=== PATIENT | male | born 1935 | race Caucasian/White ===

== ENCOUNTER 2017-10-25 14:00 | Inpatient (IN) ==
[2017-10-25 18:27] LABS: Basophils # 0.1 10*3/uL (0.0-0.2); Basophils % 0.6 % (0.0-0.8); Eosinophils # 0.4 10*3/uL (0.0-0.87); Eosinophils % 3.6 % (0.00-10.9); Hematocrit 33.5 VOL% (42.0-52.0); Hemoglobin 10.4 GM/DL (14.0-18.0); Immature Granulocytes % 0.3 %; Immature Granulocytes Absolute 0.03 #; Lymphocytes # 1.5 10*3/uL (1.4-4.0); Lymphocytes % 13.6 % (21.2-54.2); Mean Corpuscular Hemoglobin 32 PG (27-34); Mean Corpuscular Volume 102.1 FL (87-102); Mean Platelet Volume 10.7 FL (9.6-12.0); Monocytes # 1.6 10*3/uL (0.11-0.8); Neutrophils # 7.3 10*3/uL (1.4-7.4); Neutrophils % 66.9 % (38.7-73.9); Platelet Count 168 T/CUMM (130-400); Red Blood Count 3.28 MC/CUMM (3.8-5.5); Red Cell Distribution Width 11.9 % (9.3-17.3); White Blood Count 10.8 T/CUMM (4-12)
[2017-10-25] MEDS ORDERED: IBUPROFEN 600 MG TABLET PO STA (18:32)
[2017-10-25] MEDS ORDERED: IBUPROFEN 600 MG TABLET ONE (18:53)
[2017-10-25 18:55] LABS: Bilirubin,Total 0.7 MG/DL (0.2-1.0); Calcium 9.1 MG/DL (8.5-10.1); Osmolality,Calculated 283.7 MOS/KG (273-304); Potassium 3.5 MMOL/L (3.5-5.1)
[2017-10-25] MEDS ORDERED: AZITHROMYCIN 250 MG TABLET PO STA (19:43)
[2017-10-25] MEDS ORDERED: AZITHROMYCIN 250 MG TABLET ONE (19:50)
[2017-10-25] MEDS ORDERED: ZALEPLON 5 MG CAPSULE PO PRN (20:01)
[2017-10-25] MEDS ORDERED: GLUCAGON 1 MG VIAL IM PRN (20:01)
[2017-10-25] MEDS ORDERED: ONDANSETRON 4 MG/2 ML VIAL IV PRN (20:01)
[2017-10-25] MEDS ORDERED: ACETAMINOPHEN 325 MG TABLET PO PRN (20:01)
[2017-10-25] MEDS ORDERED: MAGNESIUM SULF RIDER 4 GM in PREMIX 1 EACH IV PRN (20:01)
[2017-10-25] MEDS ORDERED: POTASSIUM CHLORIDE 20 MEQ TABLET PO STA (20:10)
[2017-10-25] MEDS ORDERED: guaiFENesin 200 MG/10 ML UDCUP PO PRN (20:59)
[2017-10-25] MEDS: METOPROLOL SUCCINATE XL 25 MG TABLET PO SCH (21:46)
[2017-10-25] MEDS: INSULIN LISPRO 100 UNIT/ML SUBCUT SCH (21:46)
[2017-10-25] MEDS: ENOXAPARIN 40 MG/0.4 ML SYRINGE SUBCUT SCH (22:52)
[2017-10-26] MEDS: SIMVASTATIN 40 MG TABLET PO SCH ×2 (00:26→20:50)
[2017-10-26] MEDS: TAMSULOSIN 0.4 MG CAPSULE PO SCH ×2 (00:27→20:50)
[2017-10-26] MEDS: carBAMazepine CHEW 100 MG TABLET PO SCH ×2 (00:27→20:50)
[2017-10-26 02:04] LABS: Basophils # 0.1 10*3/uL (0.0-0.2); Basophils % 0.7 % (0.0-0.8); Eosinophils # 0.3 10*3/uL (0.0-0.87); Eosinophils % 3.9 % (0.00-10.9); Hematocrit 29.1 VOL% (42.0-52.0); Hemoglobin 9.2 GM/DL (14.0-18.0); Immature Granulocytes % 0.4 %; Immature Granulocytes Absolute 0.03 #; Lymphocytes # 0.7 10*3/uL (1.4-4.0); Lymphocytes % 9.8 % (21.2-54.2); Mean Corpuscular HGB Conc 31.6 GM/DL (32-36); Mean Corpuscular Hemoglobin 32 PG (27-34); Mean Platelet Volume 10.4 FL (9.6-12.0); Monocytes % 13.8 % (1.7-12.7); Neutrophils # 5.3 10*3/uL (1.4-7.4); Neutrophils % 71.4 % (38.7-73.9); Platelet Count 133 T/CUMM (130-400); Red Blood Count 2.88 MC/CUMM (3.8-5.5); Red Cell Distribution Width 11.9 % (9.3-17.3); White Blood Count 7.4 T/CUMM (4-12)
[2017-10-26 02:45] LABS: Calcium 8.1 MG/DL (8.5-10.1); Potassium 3.6 MMOL/L (3.5-5.1); Risk Ratio 2.16; VLDL CHOLESTEROL 13.4 MG/DL
[2017-10-26 03:25] LABS: Apearance,Urine Slightly Hazy (Clear); Bilirubin,Urine Negative (Negative); Blood, Urine Negative (Negative); Glucose,Urine (UA) Negative (Negative); Granular Casts,Urine 2 /LPF (0-1); Hyaline Casts,Urine 18 /LPF (0-3); Ketones,Urine Negative (Negative); Mucus,Urine Occasional /LPF (Occasional); Nitrite,Urine Negative (Negative); Protein,Urine 30 MG/DL; RBC,Urine <1 /HPF (0-4); Squamous Epithelial Cell,Urine Occasional /HPF (0-10); Urine Color Yellow (Yellow); Urine Specific Gravity 1.017 (1.001-1.035); WBC,Urine 5 /HPF (0-6)
[2017-10-26] MEDS ORDERED: ASPIRIN CHEW 81 MG TABLET PO SCH (09:00)
[2017-10-26] MEDS: MULTIVITAMIN (OCUVITE) TABLET PO SCH (10:05)
[2017-10-26] MEDS: METOPROLOL SUCCINATE XL 25 MG TABLET PO SCH (10:05)
[2017-10-26] MEDS: FOLIC ACID 1 MG TABLET PO SCH (10:05)
[2017-10-26] MEDS: FINASTERIDE 5 MG TABLET PO SCH (10:06)
[2017-10-26] MEDS: CLOPIDOGREL 75 MG TABLET PO SCH (10:06)
[2017-10-26] MEDS: PANTOPRAZOLE 40 MG TABLET PO SCH (10:06)
[2017-10-26] MEDS: SPIRONOLACTONE 25 MG TABLET PO SCH (10:06)
[2017-10-26] MEDS: THIAMINE 100 MG TABLET PO SCH (10:06)
[2017-10-26] MEDS: ASPIRIN EC 81 MG TABLET PO SCH (10:07)
[2017-10-26] MEDS: FUROSEMIDE 40 MG/4 ML VIAL IV SCH ×2 (10:07→15:44)
[2017-10-26] MEDS: INSULIN LISPRO 100 UNIT/ML SUBCUT SCH ×4 (10:07→20:50)
[2017-10-26 10:47] LABS: Apearance,Urine CLEAR (Clear); Bilirubin,Urine Negative (Negative); Blood, Urine Negative (Negative); Glucose,Urine (UA) Negative (Negative); Ketones,Urine Negative (Negative); Nitrite,Urine Negative (Negative); Protein,Urine 30 MG/DL; RBC,Urine 1 /HPF (0-4); Squamous Epithelial Cell,Urine Occasional /HPF (0-10); Urine Color Yellow (Yellow); Urine Specific Gravity 1.012 (1.001-1.035); WBC,Urine 5 /HPF (0-6)
[2017-10-26 11:52] LABS: Basophils # 0.1 10*3/uL (0.0-0.2); Basophils % 0.7 % (0.0-0.8); Eosinophils # 0.3 10*3/uL (0.0-0.87); Hematocrit 32.5 VOL% (42.0-52.0); Hemoglobin 10.3 GM/DL (14.0-18.0); Immature Granulocytes % 0.6 %; Immature Granulocytes Absolute 0.04 #; Lymphocytes # 0.8 10*3/uL (1.4-4.0); Lymphocytes % 10.7 % (21.2-54.2); Mean Corpuscular HGB Conc 31.7 GM/DL (32-36); Mean Corpuscular Hemoglobin 32 PG (27-34); Mean Corpuscular Volume 100.9 FL (87-102); Mean Platelet Volume 10.9 FL (9.6-12.0); Monocytes % 13.5 % (1.7-12.7); Neutrophils # 5.1 10*3/uL (1.4-7.4); Neutrophils % 70.5 % (38.7-73.9); Platelet Count 156 T/CUMM (130-400); Red Blood Count 3.22 MC/CUMM (3.8-5.5); Red Cell Distribution Width 11.9 % (9.3-17.3); White Blood Count 7.2 T/CUMM (4-12)
[2017-10-26] MEDS ORDERED: MAGNESIUM SULF RIDER 2 GM in PREMIX 1 EACH IV PRN (12:14)
[2017-10-26] MEDS ORDERED: MAGNESIUM SULF RIDER 4 GM in PREMIX 1 EACH IV PRN (12:14)
[2017-10-26] MEDS: MAGNESIUM OXIDE 400 MG TABLET PO SCH ×2 (12:19→20:50)
[2017-10-26] MEDS: cefTRIAXone 1,000 MG in SYRINGE 1 EACH IV SCH (12:23)
[2017-10-26] MEDS: LEVOFLOXACIN INJ 750 MG in PREMIX 1 EACH IV SCH (12:28)
[2017-10-26 12:36] LABS: Folate > 24.0 NG/ML (5.4-24.0); Vitamin B12 1236 PG/ML (211-911)
[2017-10-26] MEDS: MAGNESIUM SULF RIDER 2 GM in PREMIX 1 EACH IV PRN ×2 (13:55→15:43)
[2017-10-26 14:07] LABS: Sedimentation Rate-Westergren 92 MM/HR (0-20)
[2017-10-26] MEDS ORDERED: MAGNESIUM SULF RIDER 2 GM in PREMIX 1 EACH IV ONE (15:17)
[2017-10-26] MEDS: POTASSIUM CHLORIDE 20 MEQ TABLET PO PRN (15:38)
[2017-10-26] MEDS: OSELTAMIVIR 75 MG CAPSULE PO SCH ×2 (15:38→20:50)
[2017-10-26] MEDS: glipiZIDE 10 MG TABLET PO SCH (15:39)
[2017-10-26] MEDS: ENOXAPARIN 40 MG/0.4 ML SYRINGE SUBCUT SCH ×2 (20:50→21:11)
[2017-10-27 05:54] LABS: Basophils % 0.5 % (0.0-0.8); Eosinophils # 0.3 10*3/uL (0.0-0.87); Eosinophils % 3.7 % (0.00-10.9); Hematocrit 31.8 VOL% (42.0-52.0); Hemoglobin 10.4 GM/DL (14.0-18.0); Immature Granulocytes % 0.6 %; Immature Granulocytes Absolute 0.05 #; Lymphocytes # 1.1 10*3/uL (1.4-4.0); Lymphocytes % 14.1 % (21.2-54.2); Mean Corpuscular HGB Conc 32.7 GM/DL (32-36); Mean Corpuscular Hemoglobin 32 PG (27-34); Mean Platelet Volume 11.1 FL (9.6-12.0); Monocytes # 1.6 10*3/uL (0.11-0.8); Monocytes % 20.4 % (1.7-12.7); Neutrophils # 4.7 10*3/uL (1.4-7.4); Neutrophils % 60.7 % (38.7-73.9); Platelet Count 155 T/CUMM (130-400); Red Blood Count 3.28 MC/CUMM (3.8-5.5); Red Cell Distribution Width 11.8 % (9.3-17.3); White Blood Count 7.8 T/CUMM (4-12)
[2017-10-27 06:27] LABS: Calcium 8.7 MG/DL (8.5-10.1); Magnesium 2.1 MG/DL (1.8-2.4); Osmolality,Calculated 280.5 MOS/KG (273-304); Potassium 3.7 MMOL/L (3.5-5.1)
[2017-10-27 06:36] LABS: Band Neutrophils 1 % (0-10); Eosinophils 3 % (0-10); Hypochromasia 1+; Lymphocytes 10 % (20-55); Segmented Neutrophils 69 % (50-85); Total Cells Counted 100
[2017-10-27 06:37] LABS: Microcytosis 1+
[2017-10-27 06:38] LABS: Platelet Estimate Adequate
[2017-10-27] MEDS: INSULIN LISPRO 100 UNIT/ML SUBCUT SCH ×4 (08:00→20:53)
[2017-10-27] MEDS: FUROSEMIDE 40 MG/4 ML VIAL IV SCH (09:50)
[2017-10-27] MEDS: SPIRONOLACTONE 25 MG TABLET PO SCH (09:50)
[2017-10-27] MEDS: ASPIRIN EC 81 MG TABLET PO SCH (09:51)
[2017-10-27] MEDS: MAGNESIUM OXIDE 400 MG TABLET PO SCH ×2 (09:51→21:08)
[2017-10-27] MEDS: CLOPIDOGREL 75 MG TABLET PO SCH (09:51)
[2017-10-27] MEDS: METOPROLOL SUCCINATE XL 25 MG TABLET PO SCH (09:51)
[2017-10-27] MEDS: FINASTERIDE 5 MG TABLET PO SCH (09:51)
[2017-10-27] MEDS: FOLIC ACID 1 MG TABLET PO SCH (09:51)
[2017-10-27] MEDS: amLODIPine 5 MG TABLET PO SCH (09:52)
[2017-10-27] MEDS: PANTOPRAZOLE 40 MG TABLET PO SCH (09:52)
[2017-10-27] MEDS: OSELTAMIVIR 75 MG CAPSULE PO SCH ×2 (09:52→21:08)
[2017-10-27] MEDS: THIAMINE 100 MG TABLET PO SCH (09:52)
[2017-10-27] MEDS: glipiZIDE 10 MG TABLET PO SCH ×2 (09:52→17:04)
[2017-10-27] MEDS: MULTIVITAMIN (OCUVITE) TABLET PO SCH (09:52)
[2017-10-27] MEDS: cefTRIAXone 1,000 MG in SYRINGE 1 EACH IV SCH (12:54)
[2017-10-27] MEDS: SOTALOL 80 MG TABLET PO SCH ×2 (12:54→21:07)
[2017-10-27] MEDS: APIXABAN 2.5 MG TABLET PO SCH ×2 (12:54→21:08)
[2017-10-27] MEDS: LEVOFLOXACIN INJ 750 MG in PREMIX 1 EACH IV SCH (12:55)
[2017-10-27] MEDS: SIMVASTATIN 40 MG TABLET PO SCH (21:07)
[2017-10-27] MEDS: TAMSULOSIN 0.4 MG CAPSULE PO SCH (21:08)
[2017-10-27] MEDS: carBAMazepine CHEW 100 MG TABLET PO SCH (21:12)
[2017-10-28 04:57] LABS: Calcium 8.7 MG/DL (8.5-10.1); Magnesium 1.9 MG/DL (1.8-2.4); Osmolality,Calculated 285.4 MOS/KG (273-304); Potassium 3.8 MMOL/L (3.5-5.1)
[2017-10-28 05:15] LABS: Basophils # 0.1 10*3/uL (0.0-0.2); Basophils % 0.7 % (0.0-0.8); Eosinophils # 0.3 10*3/uL (0.0-0.87); Eosinophils % 3.6 % (0.00-10.9); Hematocrit 31.9 VOL% (42.0-52.0); Hemoglobin 10.2 GM/DL (14.0-18.0); Immature Granulocytes % 0.6 %; Immature Granulocytes Absolute 0.05 #; Lymphocytes # 1.5 10*3/uL (1.4-4.0); Lymphocytes % 17.6 % (21.2-54.2); Mean Corpuscular Hemoglobin 31 PG (27-34); Mean Corpuscular Volume 98.2 FL (87-102); Monocytes # 1.3 10*3/uL (0.11-0.8); Monocytes % 15.9 % (1.7-12.7); Neutrophils # 5.1 10*3/uL (1.4-7.4); Neutrophils % 61.6 % (38.7-73.9); Platelet Count 170 T/CUMM (130-400); Red Blood Count 3.25 MC/CUMM (3.8-5.5); Red Cell Distribution Width 11.7 % (9.3-17.3); White Blood Count 8.3 T/CUMM (4-12)
[2017-10-28 06:02] LABS: Burr Cells Slight; Eosinophils 3 % (0-10); Lymphocytes 12 % (20-55); Platelet Estimate Normal; Segmented Neutrophils 74 % (50-85); Total Cells Counted 100
[2017-10-28] MEDS: amLODIPine 5 MG TABLET PO SCH (08:50)
[2017-10-28] MEDS: SOTALOL 80 MG TABLET PO SCH ×2 (08:50→21:11)
[2017-10-28] MEDS: PANTOPRAZOLE 40 MG TABLET PO SCH (08:50)
[2017-10-28] MEDS: FOLIC ACID 1 MG TABLET PO SCH (08:50)
[2017-10-28] MEDS: METOPROLOL SUCCINATE XL 25 MG TABLET PO SCH (08:51)
[2017-10-28] MEDS: SPIRONOLACTONE 25 MG TABLET PO SCH (08:51)
[2017-10-28] MEDS: glipiZIDE 10 MG TABLET PO SCH ×2 (08:51→16:37)
[2017-10-28] MEDS: MAGNESIUM OXIDE 400 MG TABLET PO SCH ×2 (08:52→21:11)
[2017-10-28] MEDS: FINASTERIDE 5 MG TABLET PO SCH (08:52)
[2017-10-28] MEDS: MULTIVITAMIN (OCUVITE) TABLET PO SCH (08:52)
[2017-10-28] MEDS: INSULIN LISPRO 100 UNIT/ML SUBCUT SCH ×4 (08:52→21:13)
[2017-10-28] MEDS: FUROSEMIDE 40 MG TABLET PO SCH (08:52)
[2017-10-28] MEDS: APIXABAN 2.5 MG TABLET PO SCH ×2 (08:52→21:11)
[2017-10-28] MEDS: ASPIRIN EC 81 MG TABLET PO SCH (08:52)
[2017-10-28] MEDS: OSELTAMIVIR 75 MG CAPSULE PO SCH ×2 (08:52→21:11)
[2017-10-28] MEDS: THIAMINE 100 MG TABLET PO SCH (08:57)
[2017-10-28] MEDS: POTASSIUM CHLORIDE 20 MEQ TABLET PO PRN (08:57)
[2017-10-28] MEDS: LEVOFLOXACIN INJ 750 MG in PREMIX 1 EACH IV SCH (13:10)
[2017-10-28] MEDS: cefTRIAXone 1,000 MG in SYRINGE 1 EACH IV SCH (13:10)
[2017-10-28] MEDS ORDERED: SODIUM CHLORIDE 0.9% 1,000 ML IV SCH (14:30)
[2017-10-28] MEDS: SIMVASTATIN 40 MG TABLET PO SCH (21:11)
[2017-10-28] MEDS: TAMSULOSIN 0.4 MG CAPSULE PO SCH (21:12)
[2017-10-28] MEDS: carBAMazepine CHEW 100 MG TABLET PO SCH (21:20)
[2017-10-29 06:01] LABS: Basophils # 0.1 10*3/uL (0.0-0.2); Eosinophils # 0.4 10*3/uL (0.0-0.87); Eosinophils % 4.1 % (0.00-10.9); Hematocrit 35.3 VOL% (42.0-52.0); Hemoglobin 11.4 GM/DL (14.0-18.0); Immature Granulocytes % 1.1 %; Immature Granulocytes Absolute 0.11 #; Lymphocytes # 2.1 10*3/uL (1.4-4.0); Lymphocytes % 22.1 % (21.2-54.2); Mean Corpuscular HGB Conc 32.3 GM/DL (32-36); Mean Corpuscular Hemoglobin 32 PG (27-34); Mean Corpuscular Volume 98.6 FL (87-102); Mean Platelet Volume 10.7 FL (9.6-12.0); Monocytes # 1.1 10*3/uL (0.11-0.8); Monocytes % 10.9 % (1.7-12.7); Neutrophils # 5.8 10*3/uL (1.4-7.4); Neutrophils % 60.8 % (38.7-73.9); Platelet Count 194 T/CUMM (130-400); Red Blood Count 3.58 MC/CUMM (3.8-5.5); Red Cell Distribution Width 11.8 % (9.3-17.3); White Blood Count 9.6 T/CUMM (4-12)
[2017-10-29 06:23] LABS: Giant Platelets Few; Hypochromasia 1+; Microcytosis Slight; Ovalocytes Slight; Platelet Estimate Adequate
[2017-10-29 06:35] LABS: Magnesium 2.1 MG/DL (1.8-2.4); Osmolality,Calculated 288.3 MOS/KG (273-304); Potassium 4.6 MMOL/L (3.5-5.1)
[2017-10-29] MEDS: INSULIN LISPRO 100 UNIT/ML SUBCUT SCH ×4 (08:37→21:45)
[2017-10-29] MEDS: glipiZIDE 10 MG TABLET PO SCH ×2 (08:37→15:51)
[2017-10-29] MEDS ORDERED: MIDAZOLAM 10 MG/2 ML VIAL ONE (08:55)
[2017-10-29] MEDS ORDERED: NALOXONE 0.4 MG/ML VIAL ONE (08:55)
[2017-10-29] MEDS ORDERED: FLUMAZENIL 0.5 MG/5 ML VIAL IV ONE (08:56)
[2017-10-29] MEDS ORDERED: MEPERIDINE 50 MG/1 ML VIAL ONE (08:56)
[2017-10-29] MEDS: SOTALOL 80 MG TABLET PO SCH (11:23)
[2017-10-29] MEDS: METOPROLOL SUCCINATE XL 25 MG TABLET PO SCH (12:34)
[2017-10-29] MEDS: FINASTERIDE 5 MG TABLET PO SCH (12:46)
[2017-10-29] MEDS: PANTOPRAZOLE 40 MG TABLET PO SCH (12:46)
[2017-10-29] MEDS: amLODIPine 5 MG TABLET PO SCH (12:46)
[2017-10-29] MEDS: SPIRONOLACTONE 25 MG TABLET PO SCH (12:47)
[2017-10-29] MEDS: THIAMINE 100 MG TABLET PO SCH (12:47)
[2017-10-29] MEDS: FUROSEMIDE 40 MG TABLET PO SCH (12:47)
[2017-10-29] MEDS: MAGNESIUM OXIDE 400 MG TABLET PO SCH ×2 (12:47→21:46)
[2017-10-29] MEDS: OSELTAMIVIR 75 MG CAPSULE PO SCH ×2 (12:47→21:46)
[2017-10-29] MEDS: FOLIC ACID 1 MG TABLET PO SCH (12:47)
[2017-10-29] MEDS: ASPIRIN EC 81 MG TABLET PO SCH (12:48)
[2017-10-29] MEDS: APIXABAN 2.5 MG TABLET PO SCH ×2 (12:48→21:45)
[2017-10-29] MEDS: MULTIVITAMIN (OCUVITE) TABLET PO SCH (12:48)
[2017-10-29] MEDS: LEVOFLOXACIN INJ 750 MG in PREMIX 1 EACH IV SCH (13:11)
[2017-10-29] MEDS: cefTRIAXone 1,000 MG in SYRINGE 1 EACH IV SCH (13:13)
[2017-10-29] MEDS: FUROSEMIDE 40 MG/4 ML VIAL IV SCH (15:50)
[2017-10-29] MEDS: TAMSULOSIN 0.4 MG CAPSULE PO SCH (21:45)
[2017-10-29] MEDS: SIMVASTATIN 40 MG TABLET PO SCH (21:46)
[2017-10-29] MEDS: carBAMazepine CHEW 100 MG TABLET PO SCH (21:55)
[2017-10-30 03:05] LABS: Basophils # 0.1 10*3/uL (0.0-0.2); Basophils % 1.2 % (0.0-0.8); Eosinophils # 0.4 10*3/uL (0.0-0.87); Eosinophils % 4.6 % (0.00-10.9); Hematocrit 30.4 VOL% (42.0-52.0); Hemoglobin 9.8 GM/DL (14.0-18.0); Immature Granulocytes % 0.7 %; Immature Granulocytes Absolute 0.06 #; Lymphocytes % 24.2 % (21.2-54.2); Mean Corpuscular HGB Conc 32.2 GM/DL (32-36); Mean Corpuscular Hemoglobin 31 PG (27-34); Mean Corpuscular Volume 97.4 FL (87-102); Mean Platelet Volume 10.9 FL (9.6-12.0); Monocytes % 12.2 % (1.7-12.7); Neutrophils # 4.7 10*3/uL (1.4-7.4); Neutrophils % 57.1 % (38.7-73.9); Platelet Count 196 T/CUMM (130-400); Red Blood Count 3.12 MC/CUMM (3.8-5.5); Red Cell Distribution Width 11.9 % (9.3-17.3); White Blood Count 8.3 T/CUMM (4-12)
[2017-10-30 03:30] LABS: Calcium 8.6 MG/DL (8.5-10.1); Magnesium 2.3 MG/DL (1.8-2.4); Osmolality,Calculated 293.3 MOS/KG (273-304); Potassium 4.3 MMOL/L (3.5-5.1)
[2017-10-30 03:48] LABS: Anisocytosis 1+; Ovalocytes Few; Platelet Estimate Normal
[2017-10-30] MEDS: INSULIN LISPRO 100 UNIT/ML SUBCUT SCH ×4 (09:18→21:09)
[2017-10-30] MEDS: SPIRONOLACTONE 25 MG TABLET PO SCH (09:26)
[2017-10-30] MEDS: MAGNESIUM OXIDE 400 MG TABLET PO SCH ×2 (09:27→21:09)
[2017-10-30] MEDS: FOLIC ACID 1 MG TABLET PO SCH (09:27)
[2017-10-30] MEDS: FINASTERIDE 5 MG TABLET PO SCH (09:27)
[2017-10-30] MEDS: OSELTAMIVIR 75 MG CAPSULE PO SCH ×2 (09:27→21:10)
[2017-10-30] MEDS: amLODIPine 5 MG TABLET PO SCH (09:27)
[2017-10-30] MEDS: PANTOPRAZOLE 40 MG TABLET PO SCH (09:27)
[2017-10-30] MEDS: ASPIRIN EC 81 MG TABLET PO SCH (09:27)
[2017-10-30] MEDS: APIXABAN 2.5 MG TABLET PO SCH ×2 (09:27→21:09)
[2017-10-30] MEDS: MULTIVITAMIN (OCUVITE) TABLET PO SCH (09:27)
[2017-10-30] MEDS: THIAMINE 100 MG TABLET PO SCH (09:27)
[2017-10-30] MEDS: FUROSEMIDE 40 MG/4 ML VIAL IV SCH (09:28)
[2017-10-30] MEDS: glipiZIDE 10 MG TABLET PO SCH ×2 (09:28→17:03)
[2017-10-30] MEDS: METOPROLOL SUCCINATE XL 25 MG TABLET PO SCH (09:40)
[2017-10-30] MEDS: cefTRIAXone 1,000 MG in SYRINGE 1 EACH IV SCH (12:45)
[2017-10-30] MEDS: LEVOFLOXACIN INJ 750 MG in PREMIX 1 EACH IV SCH (12:45)
[2017-10-30] MEDS: TAMSULOSIN 0.4 MG CAPSULE PO SCH (21:09)
[2017-10-30] MEDS: SIMVASTATIN 40 MG TABLET PO SCH (21:10)
[2017-10-30] MEDS: carBAMazepine CHEW 100 MG TABLET PO SCH (21:10)
[2017-10-30] MEDS ORDERED: ATROPINE 1 MG/10 ML SYRINGE IV PRN (22:35)
[2017-10-31 05:54] LABS: Basophils # 0.1 10*3/uL (0.0-0.2); Basophils % 0.9 % (0.0-0.8); Eosinophils # 0.6 10*3/uL (0.0-0.87); Eosinophils % 5.5 % (0.00-10.9); Hematocrit 30.9 VOL% (42.0-52.0); Hemoglobin 9.9 GM/DL (14.0-18.0); Immature Granulocytes % 0.6 %; Immature Granulocytes Absolute 0.06 #; Lymphocytes # 1.8 10*3/uL (1.4-4.0); Lymphocytes % 17.7 % (21.2-54.2); Mean Corpuscular Hemoglobin 32 PG (27-34); Mean Corpuscular Volume 99.4 FL (87-102); Mean Platelet Volume 10.6 FL (9.6-12.0); Monocytes % 9.4 % (1.7-12.7); Neutrophils # 6.7 10*3/uL (1.4-7.4); Neutrophils % 65.9 % (38.7-73.9); Platelet Count 202 T/CUMM (130-400); Red Blood Count 3.11 MC/CUMM (3.8-5.5); Red Cell Distribution Width 11.9 % (9.3-17.3); White Blood Count 10.2 T/CUMM (4-12)
[2017-10-31 06:17] LABS: Calcium 8.9 MG/DL (8.5-10.1); Magnesium 2.2 MG/DL (1.8-2.4); Osmolality,Calculated 296.1 MOS/KG (273-304); Osmolality,Calculated 298.1 MOS/KG (273-304); Potassium 4.1 MMOL/L (3.5-5.1); Potassium 4.5 MMOL/L (3.5-5.1)
[2017-10-31] MEDS: MULTIVITAMIN (OCUVITE) TABLET PO SCH (08:45)
[2017-10-31] MEDS: glipiZIDE 10 MG TABLET PO SCH ×2 (08:45→16:10)
[2017-10-31] MEDS: FOLIC ACID 1 MG TABLET PO SCH (08:45)
[2017-10-31] MEDS: THIAMINE 100 MG TABLET PO SCH (08:46)
[2017-10-31] MEDS: MAGNESIUM OXIDE 400 MG TABLET PO SCH ×2 (08:46→21:14)
[2017-10-31] MEDS: ASPIRIN EC 81 MG TABLET PO SCH (08:46)
[2017-10-31] MEDS: PANTOPRAZOLE 40 MG TABLET PO SCH (08:46)
[2017-10-31] MEDS: amLODIPine 5 MG TABLET PO SCH (08:46)
[2017-10-31] MEDS: APIXABAN 2.5 MG TABLET PO SCH (08:46)
[2017-10-31] MEDS: FINASTERIDE 5 MG TABLET PO SCH (08:47)
[2017-10-31] MEDS: OSELTAMIVIR 75 MG CAPSULE PO SCH ×2 (08:47→21:14)
[2017-10-31] MEDS: SPIRONOLACTONE 25 MG TABLET PO SCH (08:47)
[2017-10-31] MEDS: FUROSEMIDE 40 MG/4 ML VIAL IV SCH (08:47)
[2017-10-31] MEDS: INSULIN LISPRO 100 UNIT/ML SUBCUT SCH ×4 (08:52→21:15)
[2017-10-31] MEDS: METOPROLOL SUCCINATE XL 25 MG TABLET PO SCH (08:57)
[2017-10-31] MEDS ORDERED: HEPARIN DRIP 25,000 UNITS/500 ML PREMIX IV ONE (12:36)
[2017-10-31] MEDS: LEVOFLOXACIN INJ 750 MG in PREMIX 1 EACH IV SCH (15:45)
[2017-10-31] MEDS: cefTRIAXone 1,000 MG in SYRINGE 1 EACH IV SCH (15:46)
[2017-10-31 17:02] LABS: Partial Thromboplastin Time 27.2 SECS (0-40)
[2017-10-31] MEDS: HEPARIN DRIP 25,000 UNITS/500 ML PREMIX IV SCH (17:30)
[2017-10-31] MEDS: TAMSULOSIN 0.4 MG CAPSULE PO SCH (21:14)
[2017-10-31] MEDS: carBAMazepine CHEW 100 MG TABLET PO SCH (21:14)
[2017-10-31] MEDS: SIMVASTATIN 40 MG TABLET PO SCH (21:14)
[2017-11-01 01:02] LABS: INR 1.1; PT Patient Result 11.4 SECS; Partial Thromboplastin Time 34.5 SECS (0-40)
[2017-11-01] MEDS: HEPARIN 5,000 UNIT/1 ML VIAL IV PRN (01:40)
[2017-11-01 05:19] LABS: Basophils # 0.1 10*3/uL (0.0-0.2); Eosinophils # 0.9 10*3/uL (0.0-0.87); Eosinophils % 7.3 % (0.00-10.9); Hematocrit 32.2 VOL% (42.0-52.0); Hemoglobin 10.3 GM/DL (14.0-18.0); Immature Granulocytes % 0.7 %; Immature Granulocytes Absolute 0.08 #; Lymphocytes # 1.7 10*3/uL (1.4-4.0); Lymphocytes % 14.8 % (21.2-54.2); Mean Corpuscular Hemoglobin 32 PG (27-34); Mean Corpuscular Volume 98.8 FL (87-102); Mean Platelet Volume 11.1 FL (9.6-12.0); Monocytes # 1.2 10*3/uL (0.11-0.8); Neutrophils # 7.8 10*3/uL (1.4-7.4); Neutrophils % 66.2 % (38.7-73.9); Platelet Count 213 T/CUMM (130-400); Red Blood Count 3.26 MC/CUMM (3.8-5.5); Red Cell Distribution Width 11.8 % (9.3-17.3); White Blood Count 11.7 T/CUMM (4-12)
[2017-11-01 05:23] LABS: INR 1.1; PT Patient Result 11.6 SECS
[2017-11-01 07:10] LABS: Magnesium 2.3 MG/DL (1.8-2.4); Potassium 3.9 MMOL/L (3.5-5.1)
[2017-11-01] MEDS: glipiZIDE 10 MG TABLET PO SCH ×2 (07:56→16:12)
[2017-11-01] MEDS: INSULIN LISPRO 100 UNIT/ML SUBCUT SCH ×4 (07:56→20:42)
[2017-11-01] MEDS: FOLIC ACID 1 MG TABLET PO SCH (08:48)
[2017-11-01] MEDS: ASPIRIN EC 81 MG TABLET PO SCH (08:48)
[2017-11-01] MEDS: SPIRONOLACTONE 25 MG TABLET PO SCH (08:48)
[2017-11-01] MEDS: MULTIVITAMIN (OCUVITE) TABLET PO SCH (08:49)
[2017-11-01] MEDS: MAGNESIUM OXIDE 400 MG TABLET PO SCH ×2 (08:49→20:39)
[2017-11-01] MEDS: amLODIPine 5 MG TABLET PO SCH (08:49)
[2017-11-01] MEDS: FINASTERIDE 5 MG TABLET PO SCH (08:49)
[2017-11-01] MEDS: PANTOPRAZOLE 40 MG TABLET PO SCH (08:49)
[2017-11-01] MEDS: OSELTAMIVIR 75 MG CAPSULE PO SCH ×2 (08:49→20:39)
[2017-11-01] MEDS: THIAMINE 100 MG TABLET PO SCH (08:49)
[2017-11-01] MEDS: HEPARIN DRIP 25,000 UNITS/500 ML PREMIX IV SCH ×2 (09:56→16:28)
[2017-11-01] MEDS: FUROSEMIDE 40 MG/4 ML VIAL IV SCH (09:59)
[2017-11-01] MEDS: LEVOFLOXACIN INJ 750 MG in PREMIX 1 EACH IV SCH (12:06)
[2017-11-01] MEDS: cefTRIAXone 1,000 MG in SYRINGE 1 EACH IV SCH (13:52)
[2017-11-01] MEDS: SIMVASTATIN 40 MG TABLET PO SCH (20:39)
[2017-11-01] MEDS: TAMSULOSIN 0.4 MG CAPSULE PO SCH (20:39)
[2017-11-01] MEDS: carBAMazepine CHEW 100 MG TABLET PO SCH (20:39)
[2017-11-02] MEDS: HEPARIN DRIP 25,000 UNITS/500 ML PREMIX IV SCH ×2 (04:24→17:06)
[2017-11-02 06:01] LABS: Basophils # 0.1 10*3/uL (0.0-0.2); Basophils % 0.7 % (0.0-0.8); Eosinophils # 0.5 10*3/uL (0.0-0.87); Eosinophils % 3.3 % (0.00-10.9); Hemoglobin 11.1 GM/DL (14.0-18.0); Immature Granulocytes % 0.7 %; Immature Granulocytes Absolute 0.09 #; Lymphocytes # 1.3 10*3/uL (1.4-4.0); Lymphocytes % 9.2 % (21.2-54.2); Mean Corpuscular HGB Conc 32.6 GM/DL (32-36); Mean Corpuscular Hemoglobin 32 PG (27-34); Mean Corpuscular Volume 96.6 FL (87-102); Monocytes # 1.5 10*3/uL (0.11-0.8); Monocytes % 10.6 % (1.7-12.7); Neutrophils # 10.5 10*3/uL (1.4-7.4); Neutrophils % 75.5 % (38.7-73.9); Platelet Count 232 T/CUMM (130-400); Red Blood Count 3.52 MC/CUMM (3.8-5.5); Red Cell Distribution Width 11.8 % (9.3-17.3); White Blood Count 13.8 T/CUMM (4-12)
[2017-11-02 06:29] LABS: Calcium 9.5 MG/DL (8.5-10.1); Magnesium 2.3 MG/DL (1.8-2.4); Osmolality,Calculated 282.5 MOS/KG (273-304); Potassium 3.8 MMOL/L (3.5-5.1)
[2017-11-02] MEDS: glipiZIDE 10 MG TABLET PO SCH ×2 (08:43→17:24)
[2017-11-02] MEDS: INSULIN LISPRO 100 UNIT/ML SUBCUT SCH ×4 (08:44→21:56)
[2017-11-02] MEDS: LEVOFLOXACIN INJ 750 MG in PREMIX 1 EACH IV SCH (11:39)
[2017-11-02 11:59] LABS: Amorphous Crystals,Urine Occasional /HPF (Few); Apearance,Urine Slightly Hazy (Clear); Bacteria,Urine Occasional /HPF (Few); Bilirubin,Urine Negative (Negative); Blood, Urine Negative (Negative); Glucose,Urine (UA) Negative (Negative); Ketones,Urine 5 mg/dL (Negative); Mucus,Urine Occasional /LPF (Occasional); Nitrite,Urine Negative (Negative); Protein,Urine Negative; RBC,Urine 1 /HPF (0-4); Squamous Epithelial Cell,Urine Occasional /HPF (0-10); Urine Color Yellow (Yellow); Urine Specific Gravity 1.017 (1.001-1.035); Urine Urobilinogen < 2.0 EU/DL (0.2-1.0); WBC,Urine 1 /HPF (0-6)
[2017-11-02] MEDS: FINASTERIDE 5 MG TABLET PO SCH (12:00)
[2017-11-02] MEDS: amLODIPine 5 MG TABLET PO SCH (12:00)
[2017-11-02] MEDS: FOLIC ACID 1 MG TABLET PO SCH (12:00)
[2017-11-02] MEDS: THIAMINE 100 MG TABLET PO SCH (12:00)
[2017-11-02] MEDS: MULTIVITAMIN (OCUVITE) TABLET PO SCH (12:01)
[2017-11-02] MEDS: ASPIRIN EC 81 MG TABLET PO SCH (12:01)
[2017-11-02] MEDS: FUROSEMIDE 40 MG/4 ML VIAL IV SCH (12:01)
[2017-11-02] MEDS: MAGNESIUM OXIDE 400 MG TABLET PO SCH ×2 (12:01→21:56)
[2017-11-02] MEDS: OSELTAMIVIR 75 MG CAPSULE PO SCH ×2 (12:01→21:56)
[2017-11-02] MEDS: PANTOPRAZOLE 40 MG TABLET PO SCH (12:01)
[2017-11-02] MEDS: SPIRONOLACTONE 25 MG TABLET PO SCH (12:01)
[2017-11-02] MEDS: cefTRIAXone 1,000 MG in SYRINGE 1 EACH IV SCH (13:53)
[2017-11-02] MEDS ORDERED: ZINC OXIDE PASTE 113 GM TUBE TOP PRN (15:21)
[2017-11-02] MEDS: TAMSULOSIN 0.4 MG CAPSULE PO SCH (21:56)
[2017-11-02] MEDS: SIMVASTATIN 40 MG TABLET PO SCH (21:56)
[2017-11-02] MEDS: carBAMazepine CHEW 100 MG TABLET PO SCH (21:56)
[2017-11-03] MEDS: HEPARIN DRIP 25,000 UNITS/500 ML PREMIX IV SCH (00:40)
[2017-11-03 02:17] LABS: Basophils # 0.1 10*3/uL (0.0-0.2); Basophils % 0.6 % (0.0-0.8); Eosinophils # 0.3 10*3/uL (0.0-0.87); Hematocrit 33.6 VOL% (42.0-52.0); Hemoglobin 10.8 GM/DL (14.0-18.0); Immature Granulocytes Absolute 0.13 #; Lymphocytes # 1.7 10*3/uL (1.4-4.0); Lymphocytes % 13.1 % (21.2-54.2); Mean Corpuscular HGB Conc 32.1 GM/DL (32-36); Mean Corpuscular Hemoglobin 31 PG (27-34); Mean Corpuscular Volume 96.8 FL (87-102); Mean Platelet Volume 10.6 FL (9.6-12.0); Monocytes # 1.6 10*3/uL (0.11-0.8); Monocytes % 12.3 % (1.7-12.7); Neutrophils # 8.9 10*3/uL (1.4-7.4); Platelet Count 204 T/CUMM (130-400); Red Blood Count 3.47 MC/CUMM (3.8-5.5); White Blood Count 12.6 T/CUMM (4-12)
[2017-11-03] MEDS: HEPARIN 5,000 UNIT/1 ML VIAL IV PRN (02:46)
[2017-11-03 02:53] LABS: Magnesium 2.3 MG/DL (1.8-2.4); Osmolality,Calculated 276.8 MOS/KG (273-304)
[2017-11-03] MEDS: DEXTROSE 50% 25 GM/50 ML VIAL IV PRN ×2 (03:34→06:42)
[2017-11-03] MEDS ORDERED: ceFAZolin 1,000 MG in SYRINGE 1 EACH IV ONE (07:34)
[2017-11-03] MEDS: glipiZIDE 10 MG TABLET PO SCH ×2 (08:12→16:24)
[2017-11-03] MEDS: FUROSEMIDE 40 MG/4 ML VIAL IV SCH (08:12)
[2017-11-03] MEDS: INSULIN LISPRO 100 UNIT/ML SUBCUT SCH ×4 (08:13→23:00)
[2017-11-03] MEDS: amLODIPine 5 MG TABLET PO SCH (09:21)
[2017-11-03] MEDS: THIAMINE 100 MG TABLET PO SCH (09:21)
[2017-11-03] MEDS: MAGNESIUM OXIDE 400 MG TABLET PO SCH ×2 (09:22→20:48)
[2017-11-03] MEDS: FINASTERIDE 5 MG TABLET PO SCH (09:22)
[2017-11-03] MEDS: SPIRONOLACTONE 25 MG TABLET PO SCH (09:22)
[2017-11-03] MEDS: PANTOPRAZOLE 40 MG TABLET PO SCH (09:22)
[2017-11-03] MEDS: ASPIRIN EC 81 MG TABLET PO SCH (09:22)
[2017-11-03] MEDS: MULTIVITAMIN (OCUVITE) TABLET PO SCH (09:22)
[2017-11-03] MEDS: OSELTAMIVIR 75 MG CAPSULE PO SCH ×2 (09:23→20:48)
[2017-11-03] MEDS: FOLIC ACID 1 MG TABLET PO SCH (09:31)
[2017-11-03] MEDS ORDERED: MIDAZOLAM 2 MG/2 ML VIAL ONE ×2 (09:58→13:25)
[2017-11-03] MEDS ORDERED: TISSUE ADHESIVE 1 EACH APPLICATOR TOP ONE ×2 (09:58→13:26)
[2017-11-03] MEDS ORDERED: fentaNYL 100 MCG/2 ML VIAL ONE ×2 (09:58→13:25)
[2017-11-03] MEDS ORDERED: LIDOCAINE 1% 20 ML VIAL ONE ×3 (09:58→13:57)
[2017-11-03] MEDS ORDERED: HEPARIN/NACL 0.9% 2 UNITS/ML 0 ML IV ONE (09:58)
[2017-11-03] MEDS ORDERED: VANCOMYCIN 500 MG VIAL ONE ×2 (10:11→13:26)
[2017-11-03] MEDS ORDERED: HEPARIN/NACL 0.9% 2 UNITS/ML 1,000 ML IV ONE (13:25)
[2017-11-03] MEDS: LEVOFLOXACIN INJ 750 MG in PREMIX 1 EACH IV SCH (14:56)
[2017-11-03] MEDS: cefTRIAXone 1,000 MG in SYRINGE 1 EACH IV SCH (14:58)
[2017-11-03] MEDS: SIMVASTATIN 40 MG TABLET PO SCH (20:47)
[2017-11-03] MEDS: carBAMazepine CHEW 100 MG TABLET PO SCH (20:48)
[2017-11-03] MEDS: TAMSULOSIN 0.4 MG CAPSULE PO SCH (20:48)
[2017-11-04 05:17] LABS: Basophils # 0.1 10*3/uL (0.0-0.2); Basophils % 0.8 % (0.0-0.8); Eosinophils # 0.3 10*3/uL (0.0-0.87); Eosinophils % 3.2 % (0.00-10.9); Hematocrit 34.4 VOL% (42.0-52.0); Hemoglobin 11.3 GM/DL (14.0-18.0); Immature Granulocytes % 1.2 %; Immature Granulocytes Absolute 0.12 #; Lymphocytes # 1.3 10*3/uL (1.4-4.0); Lymphocytes % 12.5 % (21.2-54.2); Mean Corpuscular HGB Conc 32.8 GM/DL (32-36); Mean Corpuscular Hemoglobin 32 PG (27-34); Mean Corpuscular Volume 96.6 FL (87-102); Mean Platelet Volume 10.9 FL (9.6-12.0); Monocytes # 1.5 10*3/uL (0.11-0.8); Monocytes % 14.1 % (1.7-12.7); Neutrophils # 7.1 10*3/uL (1.4-7.4); Neutrophils % 68.2 % (38.7-73.9); Platelet Count 195 T/CUMM (130-400); Red Blood Count 3.56 MC/CUMM (3.8-5.5); White Blood Count 10.4 T/CUMM (4-12)
[2017-11-04 05:35] LABS: Calcium 8.6 MG/DL (8.5-10.1); Magnesium 2.5 MG/DL (1.8-2.4); Osmolality,Calculated 289.4 MOS/KG (273-304); Potassium 4.1 MMOL/L (3.5-5.1)
[2017-11-04] MEDS: INSULIN LISPRO 100 UNIT/ML SUBCUT SCH ×4 (08:45→20:23)
[2017-11-04] MEDS: glipiZIDE 10 MG TABLET PO SCH ×2 (08:50→16:02)
[2017-11-04] MEDS: PANTOPRAZOLE 40 MG TABLET PO SCH (08:51)
[2017-11-04] MEDS: THIAMINE 100 MG TABLET PO SCH (08:51)
[2017-11-04] MEDS: FINASTERIDE 5 MG TABLET PO SCH (08:51)
[2017-11-04] MEDS: ASPIRIN EC 81 MG TABLET PO SCH (08:51)
[2017-11-04] MEDS: FOLIC ACID 1 MG TABLET PO SCH (08:51)
[2017-11-04] MEDS: amLODIPine 5 MG TABLET PO SCH (08:51)
[2017-11-04] MEDS: MULTIVITAMIN (OCUVITE) TABLET PO SCH (08:51)
[2017-11-04] MEDS: FUROSEMIDE 40 MG/4 ML VIAL IV SCH (08:52)
[2017-11-04] MEDS: SPIRONOLACTONE 25 MG TABLET PO SCH (08:52)
[2017-11-04] MEDS: MAGNESIUM OXIDE 400 MG TABLET PO SCH ×2 (09:01→20:26)
[2017-11-04] MEDS: METOPROLOL TARTRATE 25 MG TABLET PO SCH ×2 (10:56→20:21)
[2017-11-04] MEDS: cefTRIAXone 1,000 MG in SYRINGE 1 EACH IV SCH (12:43)
[2017-11-04] MEDS: LEVOFLOXACIN INJ 750 MG in PREMIX 1 EACH IV SCH (12:44)
[2017-11-04] MEDS: HEPARIN DRIP 25,000 UNITS/500 ML PREMIX IV SCH (13:45)
[2017-11-04] MEDS ORDERED: LEVOFLOXACIN 500 MG TABLET PO SCH (14:00)
[2017-11-04] MEDS: carBAMazepine CHEW 100 MG TABLET PO SCH (20:21)
[2017-11-04] MEDS: TAMSULOSIN 0.4 MG CAPSULE PO SCH (20:21)
[2017-11-04] MEDS: SIMVASTATIN 40 MG TABLET PO SCH (20:22)
[2017-11-04] MEDS ORDERED: HEPARIN 5,000 UNIT/1 ML VIAL IV ONE (21:53)
[2017-11-05 04:53] LABS: Basophils # 0.1 10*3/uL (0.0-0.2); Basophils % 0.9 % (0.0-0.8); Eosinophils # 0.6 10*3/uL (0.0-0.87); Eosinophils % 4.5 % (0.00-10.9); Hematocrit 34.6 VOL% (42.0-52.0); Hemoglobin 10.9 GM/DL (14.0-18.0); Immature Granulocytes % 0.9 %; Immature Granulocytes Absolute 0.11 #; Lymphocytes # 2.3 10*3/uL (1.4-4.0); Lymphocytes % 17.6 % (21.2-54.2); Mean Corpuscular HGB Conc 31.5 GM/DL (32-36); Mean Corpuscular Hemoglobin 31 PG (27-34); Mean Corpuscular Volume 98.6 FL (87-102); Monocytes # 1.5 10*3/uL (0.11-0.8); Monocytes % 11.9 % (1.7-12.7); Neutrophils # 8.2 10*3/uL (1.4-7.4); Neutrophils % 64.2 % (38.7-73.9); Platelet Count 199 T/CUMM (130-400); Red Blood Count 3.51 MC/CUMM (3.8-5.5); Red Cell Distribution Width 12.1 % (9.3-17.3); White Blood Count 12.8 T/CUMM (4-12)
[2017-11-05 05:25] LABS: Magnesium 2.4 MG/DL (1.8-2.4); Osmolality,Calculated 284.4 MOS/KG (273-304); Potassium 3.9 MMOL/L (3.5-5.1)
[2017-11-05] MEDS: glipiZIDE 10 MG TABLET PO SCH (09:37)
[2017-11-05] MEDS: MULTIVITAMIN (OCUVITE) TABLET PO SCH (09:37)
[2017-11-05] MEDS: FUROSEMIDE 40 MG/4 ML VIAL IV SCH (09:37)
[2017-11-05] MEDS: THIAMINE 100 MG TABLET PO SCH (09:38)
[2017-11-05] MEDS: FOLIC ACID 1 MG TABLET PO SCH (09:38)
[2017-11-05] MEDS: METOPROLOL TARTRATE 25 MG TABLET PO SCH (09:38)
[2017-11-05] MEDS: MAGNESIUM OXIDE 400 MG TABLET PO SCH (09:38)
[2017-11-05] MEDS: SPIRONOLACTONE 25 MG TABLET PO SCH (09:38)
[2017-11-05] MEDS: amLODIPine 5 MG TABLET PO SCH (09:38)
[2017-11-05] MEDS: FINASTERIDE 5 MG TABLET PO SCH (09:38)
[2017-11-05] MEDS: PANTOPRAZOLE 40 MG TABLET PO SCH (09:38)
[2017-11-05] MEDS: ASPIRIN EC 81 MG TABLET PO SCH (09:38)
[2017-11-05] MEDS: INSULIN LISPRO 100 UNIT/ML SUBCUT SCH ×2 (09:39→12:44)
[2017-11-05] MEDS: HEPARIN DRIP 25,000 UNITS/500 ML PREMIX IV SCH ×2 (10:06→12:43)
[2017-11-05 12:32] VITALS: BP 118/59
[2017-11-06] MEDS ORDERED: FUROSEMIDE 40 MG TABLET PO SCH (09:00)
[2017-11-06] MEDS ORDERED: MAGNESIUM OXIDE 400 MG TABLET PO SCH (09:00)
== END 2017-11-05 12:45 | DRG 242 ==
LOC: N.ED 14:00 → N.EDINP 20:01 → SUATTDRO 20:02 → N.TELES 21:15
PROVIDERS: ADMIT Internal Medicine; ATTEND Internal Medicine Cardiovascular Disease

== ENCOUNTER 2018-03-09 15:50 | Inpatient (IN) ==
[2018-03-09] MEDS ORDERED: SODIUM CHLORIDE 0.9% 500 ML IV STA (16:21)
[2018-03-09] MEDS ORDERED: CLINDAMYCIN INJ 600 MG in PREMIX 1 EACH IV STA (16:21)
[2018-03-09 16:34] LABS: Basophils # 0.1 10*3/uL (0.0-0.2); Basophils % 0.7 % (0.0-0.8); Eosinophils # 0.2 10*3/uL (0.0-0.87); Eosinophils % 1.3 % (0.00-10.9); Hematocrit 34.5 VOL% (42.0-52.0); Hemoglobin 11.3 GM/DL (14.0-18.0); Immature Granulocytes % 0.5 %; Immature Granulocytes Absolute 0.07 #; Lymphocytes # 1.5 10*3/uL (1.4-4.0); Lymphocytes % 11.3 % (21.2-54.2); Mean Corpuscular HGB Conc 32.8 GM/DL (32-36); Mean Corpuscular Hemoglobin 32 PG (27-34); Mean Corpuscular Volume 97.2 FL (87-102); Mean Platelet Volume 10.9 FL (9.6-12.0); Monocytes # 1.4 10*3/uL (0.11-0.8); Monocytes % 10.3 % (1.7-12.7); Neutrophils # 10.1 10*3/uL (1.4-7.4); Neutrophils % 75.9 % (38.7-73.9); Platelet Count 182 T/CUMM (130-400); Red Blood Count 3.55 MC/CUMM (3.8-5.5); Red Cell Distribution Width 12.1 % (9.3-17.3); White Blood Count 13.3 T/CUMM (4-12)
[2018-03-09 16:58] LABS: INR 3.4
[2018-03-09 17:02] LABS: Calcium 8.3 MG/DL (8.5-10.1)
[2018-03-09 17:07] LABS: PT Patient Result 34.4 SECS; Partial Thromboplastin Time 52.8 SECS (0-40)
[2018-03-09] MEDS ORDERED: GLUCAGON 1 MG VIAL IM PRN (17:16)
[2018-03-09] MEDS ORDERED: DEXTROSE 50% 25 GM/50 ML VIAL IV PRN (17:16)
[2018-03-09] MEDS ORDERED: ACETAMINOPHEN 325 MG TABLET PO PRN ×2 (17:16→20:15)
[2018-03-09 18:17] LABS: Risk Ratio 2.67; VLDL CHOLESTEROL 25.6 MG/DL
[2018-03-09] MEDS: SODIUM CHLORIDE 0.9% 1,000 ML IV SCH (19:38)
[2018-03-09] MEDS: VANCOMYCIN INJ 1,500 MG in SODIUM CHLORIDE 0.9% 500 ML IV SCH (20:15)
[2018-03-09] MEDS ORDERED: ZINC OXIDE PASTE 113 GM TUBE TOP PRN (20:15)
[2018-03-09] MEDS ORDERED: INSULIN GLARGINE 100 UNIT/ML SUBCUT SCH (21:00)
[2018-03-09] MEDS: SIMVASTATIN 20 MG TABLET PO SCH (21:30)
[2018-03-09] MEDS: TAMSULOSIN 0.4 MG CAPSULE PO SCH (21:30)
[2018-03-09] MEDS: INSULIN REGULAR 100 UNIT/ML SUBCUT SCH (21:31)
[2018-03-10 06:55] LABS: Basophils # 0.1 10*3/uL (0.0-0.2); Basophils % 0.7 % (0.0-0.8); Eosinophils # 0.2 10*3/uL (0.0-0.87); Eosinophils % 1.7 % (0.00-10.9); Hematocrit 31.3 VOL% (42.0-52.0); Hemoglobin 10.2 GM/DL (14.0-18.0); Immature Granulocytes % 0.7 %; Immature Granulocytes Absolute 0.08 #; Lymphocytes # 1.5 10*3/uL (1.4-4.0); Lymphocytes % 12.8 % (21.2-54.2); Mean Corpuscular HGB Conc 32.6 GM/DL (32-36); Mean Corpuscular Hemoglobin 32 PG (27-34); Mean Corpuscular Volume 96.9 FL (87-102); Mean Platelet Volume 11.5 FL (9.6-12.0); Monocytes # 1.4 10*3/uL (0.11-0.8); Neutrophils # 8.4 10*3/uL (1.4-7.4); Neutrophils % 72.1 % (38.7-73.9); Platelet Count 177 T/CUMM (130-400); Red Blood Count 3.23 MC/CUMM (3.8-5.5); Red Cell Distribution Width 12.1 % (9.3-17.3); White Blood Count 11.7 T/CUMM (4-12)
[2018-03-10 07:11] LABS: INR 2.9
[2018-03-10 07:15] LABS: PT Patient Result 29.4 SECS
[2018-03-10 07:29] LABS: Albumin 2.7 G/DL (3.4-5.0); Bilirubin,Total 1.3 MG/DL (0.2-1.0); Calcium 8.5 MG/DL (8.5-10.1); Osmolality,Calculated 280.4 MOS/KG (273-304); Potassium 3.8 MMOL/L (3.5-5.1); Total Protein 5.8 G/DL (6.4-8.3)
[2018-03-10] MEDS: SODIUM CHLORIDE 0.9% 1,000 ML IV SCH ×2 (08:06→18:06)
[2018-03-10] MEDS ORDERED: amLODIPine 5 MG TABLET PO SCH (09:00)
[2018-03-10] MEDS: glipiZIDE 10 MG TABLET PO SCH ×2 (09:17→16:41)
[2018-03-10] MEDS: INSULIN REGULAR 100 UNIT/ML SUBCUT SCH ×4 (09:17→21:08)
[2018-03-10] MEDS: SPIRONOLACTONE 25 MG TABLET PO SCH (09:18)
[2018-03-10] MEDS: METOPROLOL TARTRATE 25 MG TABLET PO SCH ×2 (09:18→16:35)
[2018-03-10] MEDS: carBAMazepine CHEW 100 MG TABLET PO SCH (09:18)
[2018-03-10] MEDS: FUROSEMIDE 20 MG TABLET PO SCH (09:18)
[2018-03-10] MEDS: FINASTERIDE 5 MG TABLET PO SCH (09:19)
[2018-03-10] MEDS: FERROUS SULFATE 325 MG TABLET PO SCH (09:19)
[2018-03-10] MEDS: PANTOPRAZOLE 40 MG TABLET PO SCH (09:19)
[2018-03-10] MEDS ORDERED: amLODIPine 5 MG TABLET PO ONE (11:00)
[2018-03-10] MEDS ORDERED: ASPIRIN CHEW 81 MG TABLET PO ONE (14:12)
[2018-03-10] MEDS: ASPIRIN EC 81 MG TABLET PO SCH (14:14)
[2018-03-10] MEDS: VANCOMYCIN INJ 1,500 MG in SODIUM CHLORIDE 0.9% 500 ML IV SCH (18:24)
[2018-03-10] MEDS: SIMVASTATIN 20 MG TABLET PO SCH (20:34)
[2018-03-10] MEDS: TAMSULOSIN 0.4 MG CAPSULE PO SCH (20:34)
[2018-03-10] MEDS: INSULIN GLARGINE 100 UNIT/ML SUBCUT SCH (20:39)
[2018-03-11] MEDS: SODIUM CHLORIDE 0.9% 1,000 ML IV SCH ×3 (04:00→20:00)
[2018-03-11 04:31] LABS: Basophils # 0.1 10*3/uL (0.0-0.2); Eosinophils # 0.3 10*3/uL (0.0-0.87); Eosinophils % 4.2 % (0.00-10.9); Hematocrit 32.1 VOL% (42.0-52.0); Hemoglobin 10.5 GM/DL (14.0-18.0); Immature Granulocytes % 0.5 %; Immature Granulocytes Absolute 0.04 #; Lymphocytes # 1.4 10*3/uL (1.4-4.0); Lymphocytes % 16.6 % (21.2-54.2); Mean Corpuscular HGB Conc 32.7 GM/DL (32-36); Mean Corpuscular Hemoglobin 32 PG (27-34); Mean Corpuscular Volume 96.7 FL (87-102); Mean Platelet Volume 11.6 FL (9.6-12.0); Monocytes % 12.6 % (1.7-12.7); Neutrophils # 5.3 10*3/uL (1.4-7.4); Neutrophils % 65.1 % (38.7-73.9); Platelet Count 194 T/CUMM (130-400); Red Blood Count 3.32 MC/CUMM (3.8-5.5); Red Cell Distribution Width 11.9 % (9.3-17.3); White Blood Count 8.2 T/CUMM (4-12)
[2018-03-11 04:40] LABS: INR 2.1
[2018-03-11 04:47] LABS: PT Patient Result 21.3 SECS
[2018-03-11 04:52] LABS: Calcium 8.6 MG/DL (8.5-10.1); Osmolality,Calculated 282.4 MOS/KG (273-304); Potassium 3.7 MMOL/L (3.5-5.1)
[2018-03-11] MEDS ORDERED: MUPIROCIN 2% OINT 22 GM TUBE TOP ONE (06:24)
[2018-03-11] MEDS ORDERED: LIDOCAINE 1%/EPI INJ 20 ML VIAL ONE (06:24)
[2018-03-11] MEDS ORDERED: OXYMETAZOLINE 0.05% NASAL SPRAY 15 ML BOTTLE ONE (06:24)
[2018-03-11] MEDS: INSULIN REGULAR 100 UNIT/ML SUBCUT SCH ×4 (08:40→22:30)
[2018-03-11] MEDS: amLODIPine 10 MG TABLET PO SCH (08:46)
[2018-03-11] MEDS: FUROSEMIDE 20 MG TABLET PO SCH (08:46)
[2018-03-11] MEDS: METOPROLOL TARTRATE 25 MG TABLET PO SCH ×2 (08:49→16:21)
[2018-03-11] MEDS ORDERED: PROPOFOL 200 MG/20 ML VIAL IV ONE (11:37)
[2018-03-11] MEDS ORDERED: KETAMINE 500 MG/10 ML VIAL ONE (11:38)
[2018-03-11] MEDS ORDERED: SODIUM CHLORIDE 0.9% 250 ML IV ONE (11:38)
[2018-03-11] MEDS: FINASTERIDE 5 MG TABLET PO SCH (12:08)
[2018-03-11] MEDS: glipiZIDE 10 MG TABLET PO SCH ×2 (12:08→16:21)
[2018-03-11] MEDS: PANTOPRAZOLE 40 MG TABLET PO SCH (12:08)
[2018-03-11] MEDS: FERROUS SULFATE 325 MG TABLET PO SCH (12:08)
[2018-03-11] MEDS: SPIRONOLACTONE 25 MG TABLET PO SCH (12:12)
[2018-03-11] MEDS: carBAMazepine CHEW 100 MG TABLET PO SCH (12:12)
[2018-03-11] MEDS: RIFAMPIN 300 MG CAPSULE PO SCH (16:21)
[2018-03-11] MEDS: VANCOMYCIN INJ 1,500 MG in SODIUM CHLORIDE 0.9% 500 ML IV SCH (18:15)
[2018-03-11] MEDS: SIMVASTATIN 20 MG TABLET PO SCH (22:22)
[2018-03-11] MEDS: TAMSULOSIN 0.4 MG CAPSULE PO SCH (22:22)
[2018-03-11] MEDS: INSULIN GLARGINE 100 UNIT/ML SUBCUT SCH (22:31)
[2018-03-12] MEDS: SODIUM CHLORIDE 0.9% 1,000 ML IV SCH (04:00)
[2018-03-12] MEDS: INSULIN REGULAR 100 UNIT/ML SUBCUT SCH ×4 (07:55→22:36)
[2018-03-12] MEDS: amLODIPine 10 MG TABLET PO SCH (08:34)
[2018-03-12] MEDS: ASPIRIN EC 81 MG TABLET PO SCH (08:34)
[2018-03-12] MEDS: PANTOPRAZOLE 40 MG TABLET PO SCH (08:34)
[2018-03-12] MEDS: RIFAMPIN 300 MG CAPSULE PO SCH (08:34)
[2018-03-12] MEDS: glipiZIDE 10 MG TABLET PO SCH ×2 (08:34→16:35)
[2018-03-12] MEDS: FINASTERIDE 5 MG TABLET PO SCH (08:34)
[2018-03-12] MEDS: FERROUS SULFATE 325 MG TABLET PO SCH (08:34)
[2018-03-12] MEDS: SPIRONOLACTONE 25 MG TABLET PO SCH (08:35)
[2018-03-12] MEDS: carBAMazepine CHEW 100 MG TABLET PO SCH (08:35)
[2018-03-12] MEDS: METOPROLOL TARTRATE 25 MG TABLET PO SCH ×2 (08:35→16:35)
[2018-03-12] MEDS: FUROSEMIDE 20 MG TABLET PO SCH (08:35)
[2018-03-12] MEDS: WARFARIN 3 MG TABLET PO SCH (18:05)
[2018-03-12] MEDS: WARFARIN 10 MG TABLET PO SCH (18:06)
[2018-03-12] MEDS: VANCOMYCIN INJ 1,500 MG in SODIUM CHLORIDE 0.9% 500 ML IV SCH (18:08)
[2018-03-12] MEDS: TAMSULOSIN 0.4 MG CAPSULE PO SCH (22:16)
[2018-03-12] MEDS: SIMVASTATIN 20 MG TABLET PO SCH (22:17)
[2018-03-12] MEDS: INSULIN GLARGINE 100 UNIT/ML SUBCUT SCH (22:38)
[2018-03-13 05:12] LABS: Basophils # 0.1 10*3/uL (0.0-0.2); Basophils % 1.3 % (0.0-0.8); Eosinophils # 0.4 10*3/uL (0.0-0.87); Eosinophils % 5.4 % (0.00-10.9); Hemoglobin 11.3 GM/DL (14.0-18.0); Immature Granulocytes % 0.7 %; Immature Granulocytes Absolute 0.05 #; Lymphocytes # 1.7 10*3/uL (1.4-4.0); Lymphocytes % 23.4 % (21.2-54.2); Mean Corpuscular HGB Conc 34.2 GM/DL (32-36); Mean Corpuscular Hemoglobin 32 PG (27-34); Mean Corpuscular Volume 93.5 FL (87-102); Mean Platelet Volume 11.2 FL (9.6-12.0); Monocytes # 1.1 10*3/uL (0.11-0.8); Monocytes % 15.1 % (1.7-12.7); Neutrophils # 3.8 10*3/uL (1.4-7.4); Neutrophils % 54.1 % (38.7-73.9); Platelet Count 237 T/CUMM (130-400); Red Blood Count 3.53 MC/CUMM (3.8-5.5)
[2018-03-13 05:33] LABS: Calcium 8.7 MG/DL (8.5-10.1); Potassium 3.5 MMOL/L (3.5-5.1)
[2018-03-13 05:37] LABS: INR 1.3; PT Patient Result 13.4 SECS
[2018-03-13] MEDS: INSULIN REGULAR 100 UNIT/ML SUBCUT SCH ×4 (07:54→21:27)
[2018-03-13] MEDS: SODIUM CHLORIDE 0.9% 1,000 ML IV SCH ×2 (07:54→16:38)
[2018-03-13] MEDS: FINASTERIDE 5 MG TABLET PO SCH (08:33)
[2018-03-13] MEDS: FERROUS SULFATE 325 MG TABLET PO SCH (08:33)
[2018-03-13] MEDS: PANTOPRAZOLE 40 MG TABLET PO SCH (08:33)
[2018-03-13] MEDS: glipiZIDE 10 MG TABLET PO SCH ×2 (08:34→16:22)
[2018-03-13] MEDS: BISACODYL 5 MG TABLET PO PRN (08:34)
[2018-03-13] MEDS: RIFAMPIN 300 MG CAPSULE PO SCH (08:34)
[2018-03-13] MEDS: METOPROLOL TARTRATE 25 MG TABLET PO SCH ×2 (08:34→16:22)
[2018-03-13] MEDS: FUROSEMIDE 20 MG TABLET PO SCH (08:34)
[2018-03-13] MEDS: SPIRONOLACTONE 25 MG TABLET PO SCH (08:34)
[2018-03-13] MEDS: amLODIPine 10 MG TABLET PO SCH (08:34)
[2018-03-13] MEDS: ASPIRIN EC 81 MG TABLET PO SCH (08:34)
[2018-03-13] MEDS: carBAMazepine CHEW 100 MG TABLET PO SCH (08:34)
[2018-03-13] MEDS: WARFARIN 10 MG TABLET PO SCH (18:23)
[2018-03-13] MEDS: WARFARIN 3 MG TABLET PO SCH (18:23)
[2018-03-13] MEDS: VANCOMYCIN INJ 1,500 MG in SODIUM CHLORIDE 0.9% 500 ML IV SCH (18:23)
[2018-03-13] MEDS: TAMSULOSIN 0.4 MG CAPSULE PO SCH (21:26)
[2018-03-13] MEDS: SIMVASTATIN 20 MG TABLET PO SCH (21:27)
[2018-03-13] MEDS: INSULIN GLARGINE 100 UNIT/ML SUBCUT SCH (21:27)
[2018-03-14 08:17] LABS: Basophils # 0.1 10*3/uL (0.0-0.2); Basophils % 1.2 % (0.0-0.8); Eosinophils # 0.2 10*3/uL (0.0-0.87); Eosinophils % 2.5 % (0.00-10.9); Hematocrit 36.2 VOL% (42.0-52.0); Hemoglobin 12.3 GM/DL (14.0-18.0); Immature Granulocytes % 0.6 %; Immature Granulocytes Absolute 0.06 #; Lymphocytes # 1.9 10*3/uL (1.4-4.0); Lymphocytes % 19.8 % (21.2-54.2); Mean Corpuscular Hemoglobin 32 PG (27-34); Mean Platelet Volume 11.9 FL (9.6-12.0); Monocytes % 10.3 % (1.7-12.7); Neutrophils # 6.2 10*3/uL (1.4-7.4); Neutrophils % 65.6 % (38.7-73.9); Platelet Count 235 T/CUMM (130-400); Red Blood Count 3.85 MC/CUMM (3.8-5.5); Red Cell Distribution Width 12.1 % (9.3-17.3); White Blood Count 9.4 T/CUMM (4-12)
[2018-03-14] MEDS: INSULIN REGULAR 100 UNIT/ML SUBCUT SCH ×4 (08:23→21:17)
[2018-03-14 08:24] LABS: INR 1.5; PT Patient Result 15.7 SECS
[2018-03-14 08:49] LABS: Calcium 9.2 MG/DL (8.5-10.1); Osmolality,Calculated 280.3 MOS/KG (273-304); Potassium 3.6 MMOL/L (3.5-5.1)
[2018-03-14] MEDS: RIFAMPIN 300 MG CAPSULE PO SCH (09:21)
[2018-03-14] MEDS: FERROUS SULFATE 325 MG TABLET PO SCH (09:22)
[2018-03-14] MEDS: amLODIPine 10 MG TABLET PO SCH (09:22)
[2018-03-14] MEDS: FINASTERIDE 5 MG TABLET PO SCH (09:22)
[2018-03-14] MEDS: glipiZIDE 10 MG TABLET PO SCH ×2 (09:23→15:59)
[2018-03-14] MEDS: METOPROLOL TARTRATE 25 MG TABLET PO SCH ×2 (09:24→15:59)
[2018-03-14] MEDS: ASPIRIN EC 81 MG TABLET PO SCH (09:24)
[2018-03-14] MEDS: FUROSEMIDE 20 MG TABLET PO SCH (09:24)
[2018-03-14] MEDS: SPIRONOLACTONE 25 MG TABLET PO SCH (09:24)
[2018-03-14] MEDS: PANTOPRAZOLE 40 MG TABLET PO SCH (09:24)
[2018-03-14] MEDS: carBAMazepine CHEW 100 MG TABLET PO SCH (09:24)
[2018-03-14] MEDS: SODIUM CHLORIDE 0.9% 1,000 ML IV SCH ×3 (10:09→18:40)
[2018-03-14] MEDS: WARFARIN 3 MG TABLET PO SCH (18:03)
[2018-03-14] MEDS: WARFARIN 10 MG TABLET PO SCH (18:03)
[2018-03-14] MEDS: VANCOMYCIN INJ 1,500 MG in SODIUM CHLORIDE 0.9% 500 ML IV SCH (18:30)
[2018-03-14] MEDS: TAMSULOSIN 0.4 MG CAPSULE PO SCH (21:16)
[2018-03-14] MEDS: SIMVASTATIN 20 MG TABLET PO SCH (21:16)
[2018-03-14] MEDS: INSULIN GLARGINE 100 UNIT/ML SUBCUT SCH (21:17)
[2018-03-15] MEDS: INSULIN REGULAR 100 UNIT/ML SUBCUT SCH ×4 (09:25→21:14)
[2018-03-15] MEDS: glipiZIDE 10 MG TABLET PO SCH ×2 (09:26→17:28)
[2018-03-15] MEDS: SPIRONOLACTONE 25 MG TABLET PO SCH (09:29)
[2018-03-15] MEDS: METOPROLOL TARTRATE 25 MG TABLET PO SCH ×2 (09:29→17:28)
[2018-03-15] MEDS: amLODIPine 10 MG TABLET PO SCH (09:32)
[2018-03-15] MEDS: FINASTERIDE 5 MG TABLET PO SCH (09:32)
[2018-03-15] MEDS: FUROSEMIDE 20 MG TABLET PO SCH (09:32)
[2018-03-15] MEDS: ASPIRIN EC 81 MG TABLET PO SCH (09:32)
[2018-03-15] MEDS: PANTOPRAZOLE 40 MG TABLET PO SCH (09:32)
[2018-03-15] MEDS: carBAMazepine CHEW 100 MG TABLET PO SCH (09:32)
[2018-03-15] MEDS: FERROUS SULFATE 325 MG TABLET PO SCH (09:32)
[2018-03-15] MEDS: RIFAMPIN 300 MG CAPSULE PO SCH (09:32)
[2018-03-15] MEDS: SODIUM CHLORIDE 0.9% 1,000 ML IV SCH ×2 (13:13→22:01)
[2018-03-15] MEDS: VANCOMYCIN INJ 1,500 MG in SODIUM CHLORIDE 0.9% 500 ML IV SCH (17:27)
[2018-03-15] MEDS: WARFARIN 3 MG TABLET PO SCH (17:29)
[2018-03-15] MEDS: WARFARIN 10 MG TABLET PO SCH (17:29)
[2018-03-15] MEDS: SIMVASTATIN 20 MG TABLET PO SCH (21:13)
[2018-03-15] MEDS: TAMSULOSIN 0.4 MG CAPSULE PO SCH (21:13)
[2018-03-15] MEDS: INSULIN GLARGINE 100 UNIT/ML SUBCUT SCH (21:14)
[2018-03-15] MEDS: CLINDAMYCIN 300 MG CAPSULE PO SCH (21:58)
[2018-03-16] MEDS: SODIUM CHLORIDE 0.9% 1,000 ML IV SCH (02:31)
[2018-03-16] MEDS: CLINDAMYCIN 300 MG CAPSULE PO SCH (05:09)
[2018-03-16 08:01] VITALS: BP 147/71
[2018-03-16] MEDS: amLODIPine 10 MG TABLET PO SCH (08:37)
[2018-03-16] MEDS: PANTOPRAZOLE 40 MG TABLET PO SCH (08:37)
[2018-03-16] MEDS: FERROUS SULFATE 325 MG TABLET PO SCH (08:37)
[2018-03-16] MEDS: glipiZIDE 10 MG TABLET PO SCH (08:37)
[2018-03-16] MEDS: FINASTERIDE 5 MG TABLET PO SCH (08:37)
[2018-03-16] MEDS: SPIRONOLACTONE 25 MG TABLET PO SCH (08:38)
[2018-03-16] MEDS: METOPROLOL TARTRATE 25 MG TABLET PO SCH (08:38)
[2018-03-16] MEDS: FUROSEMIDE 20 MG TABLET PO SCH (08:39)
[2018-03-16] MEDS: RIFAMPIN 300 MG CAPSULE PO SCH (08:39)
[2018-03-16] MEDS: ASPIRIN EC 81 MG TABLET PO SCH (08:39)
[2018-03-16] MEDS: BISACODYL 5 MG TABLET PO PRN (08:39)
[2018-03-16] MEDS: carBAMazepine CHEW 100 MG TABLET PO SCH (08:41)
[2018-03-16] MEDS: INSULIN REGULAR 100 UNIT/ML SUBCUT SCH (08:44)
[2018-03-27] MEDS ORDERED: CYANOCOBALAMIN 1000 MCG/1 ML VIAL IM SCH (09:00)
== END 2018-03-16 11:03 | DRG 571 ==
LOC: EDUNIT# → EDBD → N.ED 15:50 → N.EDINP 16:42 → SUATTDRO 16:42 → N.2E 19:18
PROVIDERS: ADMIT Internal Medicine; ATTEND Internal Medicine Infectious Disease

== ENCOUNTER 2021-03-21 22:00 | Inpatient (IN) ==
[2021-03-21 22:30] LABS: Basophils # 0.1 10*3/uL (0.0-0.2); Basophils % 0.4 % (0.0-0.8); Eosinophils % 0.2 % (0.00-10.9); Hematocrit 35.5 VOL% (42.0-52.0); Hemoglobin 11.5 GM/DL (14.0-18.0); Immature Granulocytes Absolute 0.16 #; Lymphocytes # 1.2 10*3/uL (1.4-4.0); Lymphocytes % 7.6 % (21.2-54.2); Mean Corpuscular HGB Conc 32.4 GM/DL (32-36); Mean Corpuscular Volume 99.4 FL (87-102); Mean Platelet Volume 11.2 FL (9.6-12.0); Monocytes % 11.4 % (1.7-12.7); Neutrophils % 79.4 % (38.7-73.9); Platelet Count 153 T/CUMM (130-400); Red Blood Count 3.57 MC/CUMM (3.8-5.5); Red Cell Distribution Width 12.3 % (9.3-17.3); White Blood Count 16.3 T/CUMM (4-12)
[2021-03-21 22:42] LABS: Albumin 3.2 G/DL (3.4-5.0); Calcium 8.6 MG/DL (8.5-10.1); Potassium 3.6 MMOL/L (3.5-5.1); Total Protein 6.6 G/DL (6.4-8.2)
[2021-03-21 23:00] LABS: INR 1.2; PT Patient Result 12.7 SECS (10.5-12.0); Partial Thromboplastin Time 29.5 SECS (23.9-33.8)
[2021-03-21] MEDS ORDERED: LEVOFLOXACIN INJ 500 MG/100 ML PREMIX IV STA (23:10)
[2021-03-22] MEDS ORDERED: SODIUM CHLORIDE 0.9% 1,000 ML IV STA (01:14)
[2021-03-22] MEDS ORDERED: GLUCAGON 1 MG VIAL IM PRN ×2 (02:12→12:38)
[2021-03-22] MEDS ORDERED: DEXTROSE 50% 25 GM/50 ML VIAL IV PRN ×3 (02:12→12:38)
[2021-03-22] MEDS ORDERED: ACETAMINOPHEN 325 MG TABLET PO PRN (02:12)
[2021-03-22] MEDS ORDERED: diphenhydrAMINE CAP 25 MG CAPSULE PO PRN (02:12)
[2021-03-22] MEDS ORDERED: NICOTINE 21 MG/24 HR PATCH TRANSDERM PRN (02:12)
[2021-03-22] MEDS ORDERED: ONDANSETRON 4 MG/2 ML VIAL IV PRN (02:12)
[2021-03-22] MEDS ORDERED: hydrALAZINE 20 MG/1 ML VIAL IV PRN (02:12)
[2021-03-22 02:52] LABS: Bacteria,Urine Occasional /HPF (Few); Bilirubin,Urine Negative (Negative); Blood, Urine Negative (Negative); Glucose,Urine (UA) Negative (Negative); Hyaline Casts,Urine 1 /LPF (0-3); Ketones,Urine Negative (Negative); Mucus,Urine Occasional /LPF (Occasional); Nitrite,Urine Negative (Negative); Protein,Urine 30 MG/DL; RBC,Urine 1 /HPF (0-4); Squamous Epithelial Cell,Urine Occasional /HPF (0-10); Urine Appearance Slightly Hazy (Clear); Urine Color Amber (Yellow); Urine Specific Gravity 1.014 (1.001-1.035); Urine Urobilinogen < 2.0 EU/DL (0.2-1.0)
[2021-03-22 05:07] LABS: Albumin 2.7 G/DL (3.4-5.0); Bilirubin,Direct 0.42 MG/DL (0.0-0.20); Bilirubin,Indirect 1.1 MG/DL (0.0-1.0); Bilirubin,Total 1.5 MG/DL (0.2-1.0); Total Protein 6.4 G/DL (6.4-8.2)
[2021-03-22] MEDS: CLINDAMYCIN INJ 300 MG/50 ML PREMIX IV SCH ×2 (06:32→16:21)
[2021-03-22] MEDS: SODIUM CHLORIDE 0.9% 1,000 ML IV SCH (06:32)
[2021-03-22] MEDS ORDERED: APIXABAN 5 MG TABLET PO SCH (13:00)
[2021-03-22] MEDS ORDERED: cefTRIAXone 1,000 MG in SODIUM CHLORIDE 0.9% 100 ML IV SCH (13:00)
[2021-03-22] MEDS: FERROUS SULFATE 325 MG TABLET PO SCH (14:24)
[2021-03-22] MEDS: DOCUSATE SODIUM 100 MG CAPSULE PO SCH ×2 (14:24→21:58)
[2021-03-22] MEDS: MEMANTINE 5 MG TABLET PO SCH (14:24)
[2021-03-22] MEDS: PANTOPRAZOLE 40 MG TABLET PO SCH (16:22)
[2021-03-22] MEDS: INSULIN LISPRO 100 UNIT/ML SUBCUT SCH (16:22)
[2021-03-22] MEDS: HEPARIN DRIP 25,000 UNITS/500 ML PREMIX IV SCH (17:27)
[2021-03-22] MEDS ORDERED: WARFARIN 10 MG TABLET PO SCH (18:00)
[2021-03-22] MEDS: SOTALOL 80 MG TABLET PO SCH (21:58)
[2021-03-22] MEDS: TAMSULOSIN 0.4 MG CAPSULE PO SCH (21:58)
[2021-03-22] MEDS: carBAMazepine 200 MG TABLET PO SCH (21:58)
[2021-03-22] MEDS: metroNIDAZOLE INJ 500 MG/100 ML PREMIX IV SCH (21:59)
[2021-03-23 00:45] LABS: Basophils % 0.3 % (0.0-0.8); Eosinophils # 0.1 10*3/uL (0.0-0.87); Eosinophils % 0.5 % (0.00-10.9); Hematocrit 32.5 VOL% (42.0-52.0); Hemoglobin 10.6 GM/DL (14.0-18.0); Immature Granulocytes % 0.7 %; Immature Granulocytes Absolute 0.08 #; Lymphocytes % 8.7 % (21.2-54.2); Mean Corpuscular HGB Conc 32.6 GM/DL (32-36); Mean Corpuscular Volume 101.2 FL (87-102); Monocytes % 12.1 % (1.7-12.7); Neutrophils % 77.7 % (38.7-73.9); Platelet Count 142 T/CUMM (130-400); Red Blood Count 3.21 MC/CUMM (3.8-5.5); Red Cell Distribution Width 12.3 % (9.3-17.3); White Blood Count 10.9 T/CUMM (4-12)
[2021-03-23 00:58] LABS: Albumin 2.4 G/DL (3.4-5.0); Bilirubin,Total 0.6 MG/DL (0.2-1.0); Calcium 8.5 MG/DL (8.5-10.1); Osmolality,Calculated 288.4 MOS/KG (273-304); Potassium 3.6 MMOL/L (3.5-5.1); Total Protein 6.3 G/DL (6.4-8.2)
[2021-03-23 02:39] LABS: Hypochromasia 1+; Platelet Estimate Normal
[2021-03-23] MEDS: INSULIN LISPRO 100 UNIT/ML SUBCUT SCH ×5 (04:30→21:00)
[2021-03-23] MEDS: metroNIDAZOLE INJ 500 MG/100 ML PREMIX IV SCH ×3 (05:11→21:01)
[2021-03-23] MEDS: cefTRIAXone 1,000 MG in SODIUM CHLORIDE 0.9% 100 ML IV SCH (08:12)
[2021-03-23] MEDS: SODIUM CHLORIDE 0.9% 1,000 ML IV SCH ×2 (08:14→21:02)
[2021-03-23] MEDS: MEMANTINE 5 MG TABLET PO SCH (08:16)
[2021-03-23] MEDS: FINASTERIDE 5 MG TABLET PO SCH (08:16)
[2021-03-23] MEDS: ASPIRIN EC 81 MG TABLET PO SCH (08:16)
[2021-03-23] MEDS: DOCUSATE SODIUM 100 MG CAPSULE PO SCH ×2 (08:16→20:59)
[2021-03-23] MEDS: SOTALOL 80 MG TABLET PO SCH (08:16)
[2021-03-23] MEDS: FERROUS SULFATE 325 MG TABLET PO SCH (08:16)
[2021-03-23] MEDS: PANTOPRAZOLE 40 MG TABLET PO SCH ×3 (08:18→15:54)
[2021-03-23 10:23] LABS: Amorphous Crystals,Urine Few /HPF (Few); Bacteria,Urine Occasional /HPF (Few); Bilirubin,Urine Negative (Negative); Blood, Urine Negative (Negative); Glucose,Urine (UA) Negative (Negative); Ketones,Urine Negative (Negative); Mucus,Urine Occasional /LPF (Occasional); Nitrite,Urine Negative (Negative); Protein,Urine 30 MG/DL; RBC,Urine 1 /HPF (0-4); Squamous Epithelial Cell,Urine Occasional /HPF (0-10); Urine Appearance CLOUDY (Clear); Urine Color Amber (Yellow); Urine Specific Gravity 1.017 (1.001-1.035); Urine Urobilinogen < 2.0 EU/DL (0.2-1.0)
[2021-03-23] MEDS: HEPARIN DRIP 25,000 UNITS/500 ML PREMIX IV SCH (12:27)
[2021-03-23] MEDS: TAMSULOSIN 0.4 MG CAPSULE PO SCH (20:59)
[2021-03-23] MEDS: carBAMazepine 200 MG TABLET PO SCH (20:59)
[2021-03-23] MEDS ORDERED: LEVOFLOXACIN INJ 500 MG/100 ML PREMIX IV SCH (21:00)
[2021-03-24] MEDS: metroNIDAZOLE INJ 500 MG/100 ML PREMIX IV SCH ×3 (05:39→20:19)
[2021-03-24 06:01] LABS: Basophils % 0.5 % (0.0-0.8); Eosinophils # 0.1 10*3/uL (0.0-0.87); Eosinophils % 1.7 % (0.00-10.9); Hematocrit 31.6 VOL% (42.0-52.0); Hemoglobin 10.2 GM/DL (14.0-18.0); Immature Granulocytes % 0.6 %; Immature Granulocytes Absolute 0.05 #; Lymphocytes # 0.9 10*3/uL (1.4-4.0); Mean Corpuscular HGB Conc 32.3 GM/DL (32-36); Mean Platelet Volume 11.3 FL (9.6-12.0); Monocytes % 13.4 % (1.7-12.7); Neutrophils % 72.8 % (38.7-73.9); Platelet Count 140 T/CUMM (130-400); Red Blood Count 3.16 MC/CUMM (3.8-5.5); Red Cell Distribution Width 12.1 % (9.3-17.3); White Blood Count 8.1 T/CUMM (4-12)
[2021-03-24 06:21] LABS: Albumin 2.3 G/DL (3.4-5.0); Bilirubin,Total 1.2 MG/DL (0.2-1.0); Calcium 8.2 MG/DL (8.5-10.1); Osmolality,Calculated 292.1 MOS/KG (273-304); Potassium 3.7 MMOL/L (3.5-5.1); Total Protein 6.1 G/DL (6.4-8.2)
[2021-03-24] MEDS: INSULIN LISPRO 100 UNIT/ML SUBCUT SCH ×4 (07:43→20:27)
[2021-03-24] MEDS: cefTRIAXone 1,000 MG in SODIUM CHLORIDE 0.9% 100 ML IV SCH (09:27)
[2021-03-24] MEDS: SODIUM CHLORIDE 0.9% 1,000 ML IV SCH ×2 (09:29→21:28)
[2021-03-24] MEDS: FERROUS SULFATE 325 MG TABLET PO SCH (09:50)
[2021-03-24] MEDS: FINASTERIDE 5 MG TABLET PO SCH (09:50)
[2021-03-24] MEDS: SOTALOL 80 MG TABLET PO SCH (09:50)
[2021-03-24] MEDS: PANTOPRAZOLE 40 MG TABLET PO SCH ×3 (09:50→17:24)
[2021-03-24] MEDS: DOCUSATE SODIUM 100 MG CAPSULE PO SCH ×2 (09:50→20:16)
[2021-03-24] MEDS: MEMANTINE 5 MG TABLET PO SCH (09:51)
[2021-03-24] MEDS: ASPIRIN EC 81 MG TABLET PO SCH (10:24)
[2021-03-24] MEDS ORDERED: HEPARIN DRIP 25,000 UNITS/500 ML PREMIX IV SCH (18:30)
[2021-03-24] MEDS: HEPARIN DRIP 25,000 UNITS/500 ML PREMIX IV SCH (19:30)
[2021-03-24] MEDS: carBAMazepine 200 MG TABLET PO SCH (20:16)
[2021-03-24] MEDS: TAMSULOSIN 0.4 MG CAPSULE PO SCH (20:17)
[2021-03-25] MEDS ORDERED: HEPARIN 5,000 UNIT/1 ML VIAL IV ONE (02:13)
[2021-03-25] MEDS: metroNIDAZOLE INJ 500 MG/100 ML PREMIX IV SCH ×3 (04:03→21:17)
[2021-03-25 06:48] LABS: Basophils % 0.5 % (0.0-0.8); Eosinophils # 0.1 10*3/uL (0.0-0.87); Hematocrit 30.9 VOL% (42.0-52.0); Hemoglobin 9.5 GM/DL (14.0-18.0); Immature Granulocytes % 0.7 %; Immature Granulocytes Absolute 0.06 #; Lymphocytes # 0.9 10*3/uL (1.4-4.0); Mean Corpuscular HGB Conc 30.7 GM/DL (32-36); Mean Corpuscular Volume 103.3 FL (87-102); Mean Platelet Volume 11.6 FL (9.6-12.0); Monocytes % 13.9 % (1.7-12.7); Neutrophils % 72.9 % (38.7-73.9); Platelet Count 149 T/CUMM (130-400); Red Blood Count 2.99 MC/CUMM (3.8-5.5); Red Cell Distribution Width 12.1 % (9.3-17.3); White Blood Count 8.4 T/CUMM (4-12)
[2021-03-25 07:05] LABS: Bilirubin,Total 0.4 MG/DL (0.2-1.0); Calcium 7.6 MG/DL (8.5-10.1); Osmolality,Calculated 288.4 MOS/KG (273-304); Potassium 3.4 MMOL/L (3.5-5.1); Total Protein 5.7 G/DL (6.4-8.2)
[2021-03-25] MEDS: INSULIN LISPRO 100 UNIT/ML SUBCUT SCH ×4 (09:12→21:06)
[2021-03-25] MEDS ORDERED: SODIUM CHLORIDE 0.45% 1,000 ML IV SCH (10:00)
[2021-03-25] MEDS ORDERED: MIDAZOLAM 2 MG/2 ML VIAL IV ONE (10:30)
[2021-03-25] MEDS ORDERED: DIAZEPAM 5 MG TABLET PO ONE (10:30)
[2021-03-25] MEDS ORDERED: fentaNYL 100 MCG/2 ML VIAL IV ONE (10:30)
[2021-03-25] MEDS: PANTOPRAZOLE 40 MG TABLET PO SCH ×3 (12:23→18:03)
[2021-03-25] MEDS: DOCUSATE SODIUM 100 MG CAPSULE PO SCH ×2 (12:32→21:05)
[2021-03-25] MEDS: ASPIRIN EC 81 MG TABLET PO SCH (12:32)
[2021-03-25] MEDS: MEMANTINE 5 MG TABLET PO SCH (12:32)
[2021-03-25] MEDS: FINASTERIDE 5 MG TABLET PO SCH (12:32)
[2021-03-25] MEDS: FERROUS SULFATE 325 MG TABLET PO SCH (12:32)
[2021-03-25] MEDS: cefTRIAXone 1,000 MG in SODIUM CHLORIDE 0.9% 100 ML IV SCH (12:33)
[2021-03-25] MEDS: SOTALOL 80 MG TABLET PO SCH (12:37)
[2021-03-25] MEDS: SODIUM CHLORIDE 0.45% 1,000 ML IV SCH (12:57)
[2021-03-25] MEDS: SODIUM CHLORIDE 0.9% 1,000 ML IV SCH (12:59)
[2021-03-25] MEDS: lisinopriL 2.5 MG TABLET PO SCH (14:46)
[2021-03-25] MEDS: METOPROLOL TARTRATE 25 MG TABLET PO SCH (18:03)
[2021-03-25] MEDS ORDERED: APIXABAN 5 MG TABLET PO SCH (21:00)
[2021-03-25] MEDS: TAMSULOSIN 0.4 MG CAPSULE PO SCH (21:05)
[2021-03-25] MEDS: carBAMazepine 200 MG TABLET PO SCH (21:05)
[2021-03-26 04:50] LABS: Basophils # 0.1 10*3/uL (0.0-0.2); Basophils % 0.7 % (0.0-0.8); Eosinophils # 0.1 10*3/uL (0.0-0.87); Eosinophils % 1.2 % (0.00-10.9); Hematocrit 33.8 VOL% (42.0-52.0); Hemoglobin 10.6 GM/DL (14.0-18.0); Immature Granulocytes % 0.8 %; Immature Granulocytes Absolute 0.09 #; Lymphocytes % 9.6 % (21.2-54.2); Mean Corpuscular HGB Conc 31.4 GM/DL (32-36); Mean Corpuscular Volume 104.6 FL (87-102); Mean Platelet Volume 11.2 FL (9.6-12.0); Neutrophils % 74.7 % (38.7-73.9); Platelet Count 173 T/CUMM (130-400); Red Blood Count 3.23 MC/CUMM (3.8-5.5); Red Cell Distribution Width 12.2 % (9.3-17.3); White Blood Count 10.7 T/CUMM (4-12)
[2021-03-26] MEDS: metroNIDAZOLE INJ 500 MG/100 ML PREMIX IV SCH ×3 (05:16→20:59)
[2021-03-26 05:37] LABS: Albumin 2.4 G/DL (3.4-5.0); Bilirubin,Total 0.7 MG/DL (0.2-1.0); Calcium 8.6 MG/DL (8.5-10.1); Osmolality,Calculated 287.1 MOS/KG (273-304); Potassium 3.7 MMOL/L (3.5-5.1); Total Protein 6.6 G/DL (6.4-8.2)
[2021-03-26] MEDS: cefTRIAXone 1,000 MG in SODIUM CHLORIDE 0.9% 100 ML IV SCH (08:46)
[2021-03-26] MEDS: FINASTERIDE 5 MG TABLET PO SCH (08:47)
[2021-03-26] MEDS: lisinopriL 2.5 MG TABLET PO SCH (08:47)
[2021-03-26] MEDS: DOCUSATE SODIUM 100 MG CAPSULE PO SCH ×2 (08:47→20:59)
[2021-03-26] MEDS: METOPROLOL TARTRATE 25 MG TABLET PO SCH ×2 (08:47→16:04)
[2021-03-26] MEDS: ASPIRIN EC 81 MG TABLET PO SCH (08:47)
[2021-03-26] MEDS: SOTALOL 80 MG TABLET PO SCH (08:47)
[2021-03-26] MEDS: MEMANTINE 5 MG TABLET PO SCH (08:47)
[2021-03-26] MEDS: FERROUS SULFATE 325 MG TABLET PO SCH (08:47)
[2021-03-26] MEDS: PANTOPRAZOLE 40 MG TABLET PO SCH ×3 (08:48→16:04)
[2021-03-26] MEDS: INSULIN LISPRO 100 UNIT/ML SUBCUT SCH ×4 (09:17→21:00)
[2021-03-26] MEDS: SODIUM CHLORIDE 0.45% 1,000 ML IV SCH (18:12)
[2021-03-26] MEDS: APIXABAN 5 MG TABLET PO SCH (20:58)
[2021-03-26] MEDS: carBAMazepine 200 MG TABLET PO SCH (20:58)
[2021-03-26] MEDS: TAMSULOSIN 0.4 MG CAPSULE PO SCH (20:59)
[2021-03-27 03:54] LABS: Basophils # 0.1 10*3/uL (0.0-0.2); Basophils % 0.6 % (0.0-0.8); Eosinophils # 0.2 10*3/uL (0.0-0.87); Eosinophils % 2.4 % (0.00-10.9); Hematocrit 34.1 VOL% (42.0-52.0); Hemoglobin 10.7 GM/DL (14.0-18.0); Immature Granulocytes % 0.9 %; Immature Granulocytes Absolute 0.09 #; Lymphocytes # 1.2 10*3/uL (1.4-4.0); Lymphocytes % 11.8 % (21.2-54.2); Mean Corpuscular HGB Conc 31.4 GM/DL (32-36); Mean Corpuscular Volume 102.1 FL (87-102); Mean Platelet Volume 11.1 FL (9.6-12.0); Monocytes % 11.7 % (1.7-12.7); Neutrophils % 72.6 % (38.7-73.9); Platelet Count 196 T/CUMM (130-400); Red Blood Count 3.34 MC/CUMM (3.8-5.5); Red Cell Distribution Width 12.2 % (9.3-17.3); White Blood Count 10.1 T/CUMM (4-12)
[2021-03-27 04:16] LABS: Albumin 2.3 G/DL (3.4-5.0); Bilirubin,Total 0.5 MG/DL (0.2-1.0); Calcium 8.7 MG/DL (8.5-10.1); Osmolality,Calculated 293.7 MOS/KG (273-304); Potassium 3.7 MMOL/L (3.5-5.1); Total Protein 6.4 G/DL (6.4-8.2)
[2021-03-27 04:42] LABS: Microcytosis Slight
[2021-03-27] MEDS: metroNIDAZOLE INJ 500 MG/100 ML PREMIX IV SCH ×3 (04:42→21:08)
[2021-03-27 04:43] LABS: Platelet Estimate Adequate
[2021-03-27] MEDS: PANTOPRAZOLE 40 MG TABLET PO SCH ×3 (09:10→18:06)
[2021-03-27] MEDS: METOPROLOL TARTRATE 25 MG TABLET PO SCH ×2 (09:10→18:06)
[2021-03-27] MEDS: SOTALOL 80 MG TABLET PO SCH (09:11)
[2021-03-27] MEDS: APIXABAN 5 MG TABLET PO SCH ×2 (09:11→21:05)
[2021-03-27] MEDS: ASPIRIN EC 81 MG TABLET PO SCH (09:11)
[2021-03-27] MEDS: FERROUS SULFATE 325 MG TABLET PO SCH (09:11)
[2021-03-27] MEDS: FINASTERIDE 5 MG TABLET PO SCH (09:11)
[2021-03-27] MEDS: MEMANTINE 5 MG TABLET PO SCH (09:11)
[2021-03-27] MEDS: lisinopriL 2.5 MG TABLET PO SCH (09:11)
[2021-03-27] MEDS: INSULIN LISPRO 100 UNIT/ML SUBCUT SCH ×4 (09:11→21:06)
[2021-03-27] MEDS: DOCUSATE SODIUM 100 MG CAPSULE PO SCH ×2 (09:11→21:05)
[2021-03-27] MEDS: cefTRIAXone 1,000 MG in SODIUM CHLORIDE 0.9% 100 ML IV SCH (09:16)
[2021-03-27] MEDS ORDERED: POLYETHYLENE GLYCOL POWDER 255 GM BOTTLE PO ONE (10:18)
[2021-03-27] MEDS ORDERED: MAGNESIUM CITRATE 300 ML BOTTLE PO ONE (15:00)
[2021-03-27] MEDS: TAMSULOSIN 0.4 MG CAPSULE PO SCH (21:05)
[2021-03-27] MEDS: carBAMazepine 200 MG TABLET PO SCH (21:05)
[2021-03-28] MEDS: metroNIDAZOLE INJ 500 MG/100 ML PREMIX IV SCH ×3 (05:10→20:17)
[2021-03-28 05:22] LABS: Basophils # 0.1 10*3/uL (0.0-0.2); Eosinophils # 0.3 10*3/uL (0.0-0.87); Eosinophils % 3.7 % (0.00-10.9); Hematocrit 36.3 VOL% (42.0-52.0); Hemoglobin 11.3 GM/DL (14.0-18.0); Immature Granulocytes Absolute 0.09 #; Lymphocytes # 1.2 10*3/uL (1.4-4.0); Lymphocytes % 13.1 % (21.2-54.2); Mean Corpuscular HGB Conc 31.1 GM/DL (32-36); Mean Corpuscular Volume 103.7 FL (87-102); Mean Platelet Volume 11.3 FL (9.6-12.0); Monocytes % 12.3 % (1.7-12.7); Neutrophils % 68.9 % (38.7-73.9); Platelet Count 240 T/CUMM (130-400); Red Cell Distribution Width 12.2 % (9.3-17.3); White Blood Count 9.2 T/CUMM (4-12)
[2021-03-28 05:51] LABS: Calcium 8.9 MG/DL (8.5-10.1); Osmolality,Calculated 296.4 MOS/KG (273-304); Potassium 3.6 MMOL/L (3.5-5.1)
[2021-03-28] MEDS: INSULIN LISPRO 100 UNIT/ML SUBCUT SCH ×4 (08:22→20:15)
[2021-03-28] MEDS ORDERED: MAGNESIUM CITRATE 300 ML BOTTLE PO ONE (08:43)
[2021-03-28] MEDS ORDERED: BISACODYL 5 MG TABLET PO ONE (08:51)
[2021-03-28] MEDS: lisinopriL 2.5 MG TABLET PO SCH (10:17)
[2021-03-28] MEDS: ASPIRIN EC 81 MG TABLET PO SCH (10:17)
[2021-03-28] MEDS: PANTOPRAZOLE 40 MG TABLET PO SCH ×3 (10:17→16:37)
[2021-03-28] MEDS: SOTALOL 80 MG TABLET PO SCH (10:17)
[2021-03-28] MEDS: APIXABAN 5 MG TABLET PO SCH ×2 (10:17→20:15)
[2021-03-28] MEDS: FINASTERIDE 5 MG TABLET PO SCH (10:17)
[2021-03-28] MEDS: FERROUS SULFATE 325 MG TABLET PO SCH (10:18)
[2021-03-28] MEDS: MEMANTINE 5 MG TABLET PO SCH (10:18)
[2021-03-28] MEDS: DOCUSATE SODIUM 100 MG CAPSULE PO SCH ×2 (10:18→20:15)
[2021-03-28] MEDS: METOPROLOL TARTRATE 25 MG TABLET PO SCH ×2 (10:18→16:37)
[2021-03-28] MEDS: cefTRIAXone 1,000 MG in SODIUM CHLORIDE 0.9% 100 ML IV SCH (10:23)
[2021-03-28] MEDS: CIPROFLOXACIN INJ 400 MG/200 ML PREMIX IV SCH (16:37)
[2021-03-28] MEDS: carBAMazepine 200 MG TABLET PO SCH (20:14)
[2021-03-28] MEDS: TAMSULOSIN 0.4 MG CAPSULE PO SCH (20:14)
[2021-03-29] MEDS: metroNIDAZOLE INJ 500 MG/100 ML PREMIX IV SCH ×3 (05:57→21:06)
[2021-03-29 06:21] LABS: Basophils # 0.1 10*3/uL (0.0-0.2); Basophils % 1.1 % (0.0-0.8); Eosinophils # 0.5 10*3/uL (0.0-0.87); Hematocrit 36.1 VOL% (42.0-52.0); Hemoglobin 11.2 GM/DL (14.0-18.0); Immature Granulocytes % 0.9 %; Immature Granulocytes Absolute 0.08 #; Lymphocytes # 1.2 10*3/uL (1.4-4.0); Lymphocytes % 12.5 % (21.2-54.2); Mean Corpuscular Volume 103.4 FL (87-102); Mean Platelet Volume 10.5 FL (9.6-12.0); Monocytes % 9.9 % (1.7-12.7); Neutrophils % 70.6 % (38.7-73.9); Platelet Count 250 T/CUMM (130-400); Red Blood Count 3.49 MC/CUMM (3.8-5.5); Red Cell Distribution Width 12.3 % (9.3-17.3); White Blood Count 9.3 T/CUMM (4-12)
[2021-03-29 06:44] LABS: Calcium 8.4 MG/DL (8.5-10.1); Osmolality,Calculated 292.7 MOS/KG (273-304); Potassium 3.9 MMOL/L (3.5-5.1)
[2021-03-29] MEDS: CIPROFLOXACIN INJ 400 MG/200 ML PREMIX IV SCH (09:17)
[2021-03-29] MEDS: METOPROLOL TARTRATE 25 MG TABLET PO SCH ×2 (09:18→16:29)
[2021-03-29] MEDS: INSULIN LISPRO 100 UNIT/ML SUBCUT SCH ×4 (09:18→21:06)
[2021-03-29] MEDS: FINASTERIDE 5 MG TABLET PO SCH (09:18)
[2021-03-29] MEDS: APIXABAN 5 MG TABLET PO SCH ×2 (09:19→21:07)
[2021-03-29] MEDS: FERROUS SULFATE 325 MG TABLET PO SCH (09:19)
[2021-03-29] MEDS: DOCUSATE SODIUM 100 MG CAPSULE PO SCH ×2 (09:19→21:07)
[2021-03-29] MEDS: SOTALOL 80 MG TABLET PO SCH (09:19)
[2021-03-29] MEDS: lisinopriL 2.5 MG TABLET PO SCH (09:19)
[2021-03-29] MEDS: MEMANTINE 5 MG TABLET PO SCH (09:19)
[2021-03-29] MEDS: ASPIRIN EC 81 MG TABLET PO SCH (09:19)
[2021-03-29] MEDS: PANTOPRAZOLE 40 MG TABLET PO SCH ×3 (09:36→16:29)
[2021-03-29 12:41] LABS: Albumin 2.4 G/DL (3.4-5.0); Bilirubin,Direct 0.17 MG/DL (0.0-0.20); Bilirubin,Indirect 0.2 MG/DL (0.0-1.0); Bilirubin,Total 0.4 MG/DL (0.2-1.0); Total Protein 6.6 G/DL (6.4-8.2)
[2021-03-29] MEDS: carBAMazepine 200 MG TABLET PO SCH (21:07)
[2021-03-29] MEDS: TAMSULOSIN 0.4 MG CAPSULE PO SCH (21:07)
[2021-03-30] MEDS: CIPROFLOXACIN INJ 400 MG/200 ML PREMIX IV SCH (02:08)
[2021-03-30] MEDS: metroNIDAZOLE INJ 500 MG/100 ML PREMIX IV SCH (04:19)
[2021-03-30 06:49] LABS: Basophils # 0.1 10*3/uL (0.0-0.2); Eosinophils # 0.5 10*3/uL (0.0-0.87); Eosinophils % 4.5 % (0.00-10.9); Hematocrit 39.1 VOL% (42.0-52.0); Hemoglobin 11.9 GM/DL (14.0-18.0); Lymphocytes # 1.2 10*3/uL (1.4-4.0); Lymphocytes % 11.9 % (21.2-54.2); Mean Corpuscular HGB Conc 30.4 GM/DL (32-36); Mean Corpuscular Volume 104.3 FL (87-102); Mean Platelet Volume 10.9 FL (9.6-12.0); Neutrophils % 71.6 % (38.7-73.9); Platelet Count 260 T/CUMM (130-400); Red Blood Count 3.75 MC/CUMM (3.8-5.5); Red Cell Distribution Width 12.4 % (9.3-17.3); White Blood Count 10.2 T/CUMM (4-12)
[2021-03-30 07:16] LABS: Calcium 8.6 MG/DL (8.5-10.1); Osmolality,Calculated 290.8 MOS/KG (273-304); Potassium 3.8 MMOL/L (3.5-5.1)
[2021-03-30 07:18] LABS: Albumin 2.5 G/DL (3.4-5.0); Bilirubin,Direct 0.16 MG/DL (0.0-0.20); Bilirubin,Indirect 0.8 MG/DL (0.0-1.0); Total Protein 6.4 G/DL (6.4-8.2)
[2021-03-30 07:29] LABS: Platelet Estimate Normal
[2021-03-30 07:30] LABS: Anisocytosis Slight
[2021-03-30] MEDS: ASPIRIN EC 81 MG TABLET PO SCH (09:43)
[2021-03-30] MEDS: DOCUSATE SODIUM 100 MG CAPSULE PO SCH ×2 (09:43→21:30)
[2021-03-30] MEDS: SOTALOL 80 MG TABLET PO SCH (09:43)
[2021-03-30] MEDS: INSULIN LISPRO 100 UNIT/ML SUBCUT SCH ×4 (09:43→21:35)
[2021-03-30] MEDS: FINASTERIDE 5 MG TABLET PO SCH (09:43)
[2021-03-30] MEDS: MEMANTINE 5 MG TABLET PO SCH (09:43)
[2021-03-30] MEDS: PANTOPRAZOLE 40 MG TABLET PO SCH ×3 (09:44→17:08)
[2021-03-30] MEDS: FERROUS SULFATE 325 MG TABLET PO SCH (09:44)
[2021-03-30] MEDS: APIXABAN 5 MG TABLET PO SCH ×2 (09:44→21:30)
[2021-03-30] MEDS: lisinopriL 2.5 MG TABLET PO SCH (09:44)
[2021-03-30] MEDS: METOPROLOL TARTRATE 25 MG TABLET PO SCH ×2 (09:44→17:08)
[2021-03-30] MEDS: MEROPENEM 500 MG in SODIUM CHLORIDE 0.9% 100 ML IV SCH (15:53)
[2021-03-30] MEDS: carBAMazepine 200 MG TABLET PO SCH (21:30)
[2021-03-30] MEDS: TAMSULOSIN 0.4 MG CAPSULE PO SCH (21:30)
[2021-03-31] MEDS: MEROPENEM 500 MG in SODIUM CHLORIDE 0.9% 100 ML IV SCH ×2 (03:08→17:11)
[2021-03-31] MEDS ORDERED: POLYETHYLENE GLYCOL POWDER 17 GM PACK PO SCH (09:00)
[2021-03-31] MEDS: INSULIN LISPRO 100 UNIT/ML SUBCUT SCH ×3 (09:37→17:12)
[2021-03-31] MEDS: FERROUS SULFATE 325 MG TABLET PO SCH (09:37)
[2021-03-31] MEDS: lisinopriL 2.5 MG TABLET PO SCH (09:38)
[2021-03-31] MEDS: METOPROLOL TARTRATE 25 MG TABLET PO SCH ×2 (09:38→17:12)
[2021-03-31] MEDS: APIXABAN 5 MG TABLET PO SCH (09:38)
[2021-03-31] MEDS: SOTALOL 80 MG TABLET PO SCH (09:38)
[2021-03-31] MEDS: ASPIRIN EC 81 MG TABLET PO SCH (09:38)
[2021-03-31] MEDS: FINASTERIDE 5 MG TABLET PO SCH (09:38)
[2021-03-31] MEDS: DOCUSATE SODIUM 100 MG CAPSULE PO SCH (09:38)
[2021-03-31] MEDS: MEMANTINE 5 MG TABLET PO SCH (09:38)
[2021-03-31] MEDS: PANTOPRAZOLE 40 MG TABLET PO SCH ×3 (09:38→17:12)
[2021-03-31 16:54] VITALS: BP 151/57
== END 2021-03-31 17:10 | DRG 871 ==
LOC: EDBD → EDUNIT# → N.ED 22:00 → N.EDINP 22:00 → N.5E 03-22 02:37 → SUATTDRO 03-24 14:51
PROVIDERS: ADMIT Internal Medicine; ATTEND Student in an Organized Health Care Education/Training Program

== ENCOUNTER 2022-10-02 08:39 | Inpatient (IN) ==
[2022-10-02] MEDS ORDERED: SODIUM CHLORIDE 0.9% 1,000 ML IV STA (09:12)
[2022-10-02 09:20] LABS: Basophils # 0.1 10*3/uL (0.0-0.2); Basophils % 0.2 % (0.0-0.8); Hematocrit 37.9 VOL% (42.0-52.0); Hemoglobin 12.3 GM/DL (14.0-18.0); Immature Granulocytes % 0.8 %; Immature Granulocytes Absolute 0.19 #; Lymphocytes % 4.4 % (21.2-54.2); Mean Corpuscular HGB Conc 32.5 GM/DL (32-36); Mean Corpuscular Volume 100.5 FL (87-102); Mean Platelet Volume 11.2 FL (9.6-12.0); Monocytes # 2.2 10*3/uL (0.11-0.8); Monocytes % 9.2 % (1.7-12.7); Neutrophils % 85.4 % (38.7-73.9); Platelet Count 172 T/CUMM (130-400); Red Blood Count 3.77 MC/CUMM (3.8-5.5); Red Cell Distribution Width 12.5 % (9.3-17.3); White Blood Count 23.7 T/CUMM (4-12)
[2022-10-02 09:27] LABS: INR 1.5; PT Patient Result 16.4 SECS (10.1-12.1)
[2022-10-02 09:37] LABS: Alanine Aminotransferase 21 U/L (16-61); Albumin 3.6 G/DL (3.4-5.0); Alkaline Phosphatase 81 U/L (45-117); Aspartate Amino Transferase 31 U/L (0-37); Blood Urea Nitrogen 57 MG/DL (7-18); Calcium 8.8 MG/DL (8.5-10.1); Carbon Dioxide 22 MMOL/L (21-32); Chloride 110 MMOL/L (98-107); Glucose 149 MG/DL (74-106); Osmolality,Calculated 301.1 MOS/KG (273-304); Potassium 4.7 MMOL/L (3.5-5.1); Sodium 142 MMOL/L (136-145); Total Protein 7.2 G/DL (6.4-8.2)
[2022-10-02 09:48] LABS: Anisocytosis 1+; Band Neutrophils 12 % (0-10); Eosinophils 1 % (0-10); Lymphocytes 6 % (20-55); Platelet Estimate Normal; Total Cells Counted 100
[2022-10-02] MEDS ORDERED: SODIUM CHLORIDE 0.9% 2,000 ML IV STA (10:21)
[2022-10-02] MEDS ORDERED: LEVOFLOXACIN INJ 500 MG/100 ML PREMIX IV ONE (10:21)
[2022-10-02] MEDS ORDERED: ACETAMINOPHEN 500 MG TABLET ONE (11:01)
[2022-10-02 11:23] LABS: Bilirubin,Urine Negative (Negative); Blood, Urine Moderate mg/dL (Negative); Glucose,Urine (UA) Negative (Negative); Ketones,Urine Negative (Negative); Nitrite,Urine Positive (Negative); Protein,Urine 30 mg/dL (Negative); Urine Appearance Slightly Cloudy (Clear); Urine Color Yellow (Yellow); Urine Urobilinogen 0.2 eU/dL (<2.0); Urine pH 5.5 (4.5-8.0)
[2022-10-02 11:27] LABS: Amorphous Crystals,Urine Occasional /HPF (Few); Bacteria,Urine Many /HPF (Few); Mucus,Urine Occasional /LPF (Occasional); RBC,Urine 5 /HPF (0-4); Squamous Epithelial Cell,Urine Moderate /HPF (0-10)
[2022-10-02] MEDS ORDERED: ONDANSETRON 4 MG/2 ML VIAL IV PRN (11:50)
[2022-10-02] MEDS ORDERED: LACTULOSE 20 GM/30 ML UDCUP PO PRN (11:50)
[2022-10-02] MEDS ORDERED: HEPARIN 5,000 UNIT/1 ML VIAL SUBCUT SCH (12:00)
[2022-10-02 12:11] LABS: % Iron Saturation 5.7 % (18-50)
[2022-10-02] MEDS: MEROPENEM 500 MG in SODIUM CHLORIDE 0.9% 100 ML IV SCH ×2 (12:20→20:27)
[2022-10-02 12:21] LABS: Folate 12.43 NG/ML (5.38-24.0); Vitamin B12 > 2000 PG/ML (211-911)
[2022-10-02] MEDS: SODIUM CHLORIDE 0.9% 1,000 ML IV SCH (12:44)
[2022-10-02] MEDS: DOCUSATE SODIUM 100 MG CAPSULE PO SCH ×2 (15:16→20:28)
[2022-10-02] MEDS: PANTOPRAZOLE 40 MG TABLET PO SCH (15:16)
[2022-10-02] MEDS ORDERED: NON-FORMULARY MEDICATION (Omeprazole 20 MG capsule,delayed release(DR/EC)) PO SCH (16:30)
[2022-10-02] MEDS: ACETAMINOPHEN 325 MG TABLET PO PRN (17:11)
[2022-10-02] MEDS: INSULIN LISPRO 100 UNIT/ML SUBCUT SCH ×2 (18:30→21:37)
[2022-10-02] MEDS: WARFARIN 10 MG TABLET PO SCH (18:44)
[2022-10-02] MEDS: SOTALOL 80 MG TABLET PO SCH (20:27)
[2022-10-02] MEDS: TAMSULOSIN 0.4 MG CAPSULE PO SCH (20:28)
[2022-10-02] MEDS: SIMVASTATIN 20 MG TABLET PO SCH (20:28)
[2022-10-02] MEDS: carBAMazepine CHEW 100 MG TABLET PO SCH (20:29)
[2022-10-02] MEDS ORDERED: METOPROLOL TARTRATE 25 MG TABLET PO SCH (21:00)
[2022-10-03] MEDS: SODIUM CHLORIDE 0.9% 1,000 ML IV SCH ×3 (00:21→17:31)
[2022-10-03] MEDS: MEROPENEM 500 MG in SODIUM CHLORIDE 0.9% 100 ML IV SCH ×3 (04:56→20:45)
[2022-10-03 05:30] LABS: Basophils # 0.1 10*3/uL (0.0-0.2); Basophils % 0.5 % (0.0-0.8); Eosinophils % 0.1 % (0.00-10.9); Hematocrit 33.5 VOL% (42.0-52.0); Immature Granulocytes % 0.6 %; Immature Granulocytes Absolute 0.09 #; Mean Corpuscular HGB Conc 30.7 GM/DL (32-36); Mean Corpuscular Volume 104.4 FL (87-102); Mean Platelet Volume 11.2 FL (9.6-12.0); Monocytes # 1.7 10*3/uL (0.11-0.8); Monocytes % 11.7 % (1.7-12.7); Neutrophils % 80.1 % (38.7-73.9); Red Blood Count 3.21 MC/CUMM (3.8-5.5); Red Cell Distribution Width 12.9 % (9.3-17.3); White Blood Count 14.6 T/CUMM (4-12)
[2022-10-03 05:32] LABS: Hemoglobin 10.3 GM/DL (14.0-18.0); Platelet Count 136 T/CUMM (130-400)
[2022-10-03 05:38] LABS: INR 1.5; PT Patient Result 16.2 SECS (10.1-12.1)
[2022-10-03 05:48] LABS: Albumin 2.6 G/DL (3.4-5.0); Bilirubin,Total 0.4 MG/DL (0.20-1.00); Calcium 8.3 MG/DL (8.5-10.1); Osmolality,Calculated 302.7 MOS/KG (273-304); Potassium 4.2 MMOL/L (3.5-5.1); Risk Ratio 3.12; Total Protein 6.4 G/DL (6.4-8.2); VLDL Cholesterol 23.6 MG/DL
[2022-10-03] MEDS ORDERED: lisinopriL 2.5 MG TABLET PO SCH (09:00)
[2022-10-03] MEDS ORDERED: FERRIC GLUCONATE COMPLEX 125 MG in SODIUM CHLORIDE 0.9% 100 ML IV ONE (09:00)
[2022-10-03] MEDS: INSULIN LISPRO 100 UNIT/ML SUBCUT SCH ×4 (10:14→21:47)
[2022-10-03] MEDS: POLYETHYLENE GLYCOL POWDER 17 GM PACK PO SCH (10:14)
[2022-10-03] MEDS: DOCUSATE SODIUM 100 MG CAPSULE PO SCH ×2 (10:15→21:46)
[2022-10-03] MEDS: SOTALOL 80 MG TABLET PO SCH ×2 (10:15→21:46)
[2022-10-03] MEDS: CHOLECALCIFEROL 1,000 UNIT TABLET PO SCH (10:15)
[2022-10-03] MEDS: ASPIRIN EC 81 MG TABLET PO SCH (10:15)
[2022-10-03] MEDS: FERROUS SULFATE 325 MG TABLET PO SCH (10:16)
[2022-10-03] MEDS: PANTOPRAZOLE 40 MG TABLET PO SCH (10:16)
[2022-10-03] MEDS: amLODIPine 5 MG TABLET PO SCH (10:16)
[2022-10-03] MEDS: MEMANTINE 5 MG TABLET PO SCH (10:16)
[2022-10-03] MEDS: LEVALBUTEROL 1.25 MG/3 ML NEB RESP TX SCH ×2 (14:48→19:34)
[2022-10-03] MEDS: WARFARIN 10 MG TABLET PO SCH (17:31)
[2022-10-03] MEDS: SIMVASTATIN 20 MG TABLET PO SCH (21:46)
[2022-10-03] MEDS: ACETAMINOPHEN 325 MG TABLET PO PRN (21:46)
[2022-10-03] MEDS: TAMSULOSIN 0.4 MG CAPSULE PO SCH (21:46)
[2022-10-03] MEDS: carBAMazepine CHEW 100 MG TABLET PO SCH (21:51)
[2022-10-04] MEDS: SODIUM CHLORIDE 0.9% 1,000 ML IV SCH ×5 (00:20→23:35)
[2022-10-04] MEDS: MEROPENEM 500 MG in SODIUM CHLORIDE 0.9% 100 ML IV SCH ×3 (04:00→20:25)
[2022-10-04 05:04] LABS: Basophils # 0.1 10*3/uL (0.0-0.2); Basophils % 0.4 % (0.0-0.8); Eosinophils # 0.2 10*3/uL (0.0-0.87); Eosinophils % 1.4 % (0.00-10.9); Hematocrit 32.3 VOL% (42.0-52.0); Hemoglobin 10.1 GM/DL (14.0-18.0); Immature Granulocytes % 0.9 %; Immature Granulocytes Absolute 0.11 #; Lymphocytes # 1.2 10*3/uL (1.4-4.0); Lymphocytes % 9.7 % (21.2-54.2); Mean Corpuscular HGB Conc 31.3 GM/DL (32-36); Mean Corpuscular Volume 103.2 FL (87-102); Mean Platelet Volume 11.3 FL (9.6-12.0); Monocytes # 1.5 10*3/uL (0.11-0.8); Monocytes % 12.8 % (1.7-12.7); Neutrophils % 74.8 % (38.7-73.9); Red Blood Count 3.13 MC/CUMM (3.8-5.5); White Blood Count 12.1 T/CUMM (4-12)
[2022-10-04 05:05] LABS: Platelet Count 124 T/CUMM (130-400)
[2022-10-04 05:14] LABS: INR 1.2; PT Patient Result 13.5 SECS (10.1-12.1)
[2022-10-04 05:21] LABS: Calcium 8.2 MG/DL (8.5-10.1); Osmolality,Calculated 299.7 MOS/KG (273-304); Potassium 4.2 MMOL/L (3.5-5.1)
[2022-10-04] MEDS: LEVALBUTEROL 1.25 MG/3 ML NEB RESP TX SCH ×3 (08:10→23:00)
[2022-10-04] MEDS: PANTOPRAZOLE 40 MG TABLET PO SCH (08:41)
[2022-10-04] MEDS: INSULIN LISPRO 100 UNIT/ML SUBCUT SCH ×4 (08:41→21:36)
[2022-10-04] MEDS: MEMANTINE 5 MG TABLET PO SCH (08:41)
[2022-10-04] MEDS: SOTALOL 80 MG TABLET PO SCH ×2 (08:41→20:29)
[2022-10-04] MEDS: ASPIRIN EC 81 MG TABLET PO SCH (08:41)
[2022-10-04] MEDS: FERROUS SULFATE 325 MG TABLET PO SCH (08:41)
[2022-10-04] MEDS: DOCUSATE SODIUM 100 MG CAPSULE PO SCH ×2 (08:41→20:29)
[2022-10-04] MEDS: CHOLECALCIFEROL 1,000 UNIT TABLET PO SCH (08:41)
[2022-10-04] MEDS: POLYETHYLENE GLYCOL POWDER 17 GM PACK PO SCH (08:42)
[2022-10-04] MEDS: amLODIPine 5 MG TABLET PO SCH (08:42)
[2022-10-04] MEDS: WARFARIN 10 MG TABLET PO SCH (18:07)
[2022-10-04] MEDS: SIMVASTATIN 20 MG TABLET PO SCH (20:29)
[2022-10-04] MEDS: TAMSULOSIN 0.4 MG CAPSULE PO SCH (20:29)
[2022-10-04] MEDS: carBAMazepine CHEW 100 MG TABLET PO SCH (20:29)
[2022-10-05] MEDS: MEROPENEM 500 MG in SODIUM CHLORIDE 0.9% 100 ML IV SCH ×2 (04:00→13:24)
[2022-10-05 05:28] LABS: Basophils % 0.4 % (0.0-0.8); Eosinophils # 0.1 10*3/uL (0.0-0.87); Hematocrit 32.1 VOL% (42.0-52.0); Hemoglobin 10.1 GM/DL (14.0-18.0); Immature Granulocytes % 0.6 %; Immature Granulocytes Absolute 0.06 #; Lymphocytes % 9.7 % (21.2-54.2); Mean Corpuscular HGB Conc 31.5 GM/DL (32-36); Mean Corpuscular Volume 102.9 FL (87-102); Mean Platelet Volume 11.6 FL (9.6-12.0); Monocytes # 1.3 10*3/uL (0.11-0.8); Neutrophils % 76.3 % (38.7-73.9); Platelet Count 145 T/CUMM (130-400); Red Blood Count 3.12 MC/CUMM (3.8-5.5); Red Cell Distribution Width 12.7 % (9.3-17.3); White Blood Count 10.7 T/CUMM (4-12)
[2022-10-05 05:35] LABS: INR 1.3; PT Patient Result 14.1 SECS (10.1-12.1)
[2022-10-05 05:44] LABS: Albumin 2.3 G/DL (3.4-5.0); Bilirubin,Total 0.4 MG/DL (0.20-1.00); Calcium 8.5 MG/DL (8.5-10.1); Osmolality,Calculated 301.7 MOS/KG (273-304); Potassium 4.2 MMOL/L (3.5-5.1); Total Protein 6.2 G/DL (6.4-8.2)
[2022-10-05] MEDS: POLYETHYLENE GLYCOL POWDER 17 GM PACK PO SCH (08:18)
[2022-10-05] MEDS: ASPIRIN EC 81 MG TABLET PO SCH (08:20)
[2022-10-05] MEDS: FERROUS SULFATE 325 MG TABLET PO SCH (08:20)
[2022-10-05] MEDS: CHOLECALCIFEROL 1,000 UNIT TABLET PO SCH (08:20)
[2022-10-05] MEDS: INSULIN LISPRO 100 UNIT/ML SUBCUT SCH ×2 (08:20→12:19)
[2022-10-05] MEDS: PANTOPRAZOLE 40 MG TABLET PO SCH (08:20)
[2022-10-05] MEDS: DOCUSATE SODIUM 100 MG CAPSULE PO SCH (08:20)
[2022-10-05] MEDS: amLODIPine 5 MG TABLET PO SCH (08:21)
[2022-10-05] MEDS: SODIUM CHLORIDE 0.9% 1,000 ML IV SCH ×2 (08:21→11:42)
[2022-10-05] MEDS: MEMANTINE 5 MG TABLET PO SCH (08:21)
[2022-10-05] MEDS: SOTALOL 80 MG TABLET PO SCH (08:21)
[2022-10-05] MEDS: LEVALBUTEROL 1.25 MG/3 ML NEB RESP TX SCH (09:30)
[2022-10-05 12:13] VITALS: BP 127/50
[2022-10-06] MEDS ORDERED: CEFUROXIME 250 MG TABLET PO SCH (09:00)
[2022-10-25] MEDS ORDERED: CYANOCOBALAMIN 1000 MCG/1 ML VIAL IM SCH (09:00)
== END 2022-10-05 16:15 | DRG 871 ==
LOC: N.ED 08:39 → N.EDINP 11:48 → SUATTDRO 11:48 → N.EDINP 13:30 → N.5E 14:41
PROVIDERS: ADMIT Internal Medicine; ATTEND Internal Medicine